=== PATIENT | female | born 1960 | race Caucasian/White ===

== ENCOUNTER 2019-12-11 19:04 | Emergency (ER) | payer OTHER, SELFPAY ==
[2019-12-11] VITALS (9 sets, daily range): BP systolic 147–190; BP diastolic 65–91; PULSE 55–155; RESP 16–30; TEMP 36.6; O2SAT 90–100; BMI 24.9
--- NOTE | 2019-12-11 19:22 | DI.RAD.S_ITS ---
PROCEDURE: XR FINGER RT MIN 2V INDICATIONS: crush injury TECHNIQUE: PA hand, 2 views of the index acquired. COMPARISON: None. FINDINGS: Bones: There is a small minimally displaced fracture in the tuft of the 2nd distal phalanx. The remaining osseous structures are intact. Soft tissues: Soft tissue irregularity/laceration is seen in the distal portion of the 2nd finger. IMPRESSION: Small minimally displaced fracture at the tuft of the 2nd distal phalanx. There is overlying soft tissue edema and skin irregularity/laceration. Dictated by: Antoine Patel M.D. on 12/11/2019 at 19:50 Approved by: Antoine Patel M.D. on 12/11/2019 at 19:51
--- NOTE | 2019-12-11 20:18 | PC.NURSE ---
Pt appears very anxious and is concerned that her anxiety is causing heart palpitations. Pt has a known heart defect which she has been treated for. Pt and VS reevaluated. HR ranging from 40-63, BP 147/65. No SOB or change in mentation with her palpitations. Pt returned to the waiting room lobby. tire recapper informed.
[2019-12-11 22:01] LABS: Add Manual Diff / Slide Review NO; Basophils Absolute Auto 0 /uL (0-100); Basophils Percent Auto 0.3 % (0-2); Eosinophils Absolute Auto 0 /uL (0-450); Eosinophils Percent Auto 0.4 % (2-4); Hematocrit 41.4 % (36-46); Hemoglobin 14.1 g/dL (12.0-16.0); Lymphocytes Absolute Auto 2200 /uL (1100-4500); Mean Corpuscular HGB Conc 34.1 % (30-36); Mean Corpuscular Hemoglobin 32.3 PG (26-34); Mean Corpuscular Volume 94.8 fL (80-100); Monocytes Absolute Auto 300 /uL (0-900); Monocytes Percent Auto 4.4 % (3-14); Neutrophils Absolute Auto 4300 /uL (1500-7000); Neutrophils Percent Auto 62.9 % (50-75); Platelet Count 256 X10^3/uL (150-400); Prothrombin Time 11.3 SECONDS (10.1-12.7); Red Blood Cell Count 4.37 X10^6/uL (4.0-5.2); Red Cell Distribution Width 13.1 % (11.6-14.8); White Blood Cell Count 6.8 X10^3/uL (4.5-11.0)
[2019-12-11 22:04] LABS: PTT Partial Thromboplastin Tim 31 SECONDS (26.4-36.2)
[2019-12-11 22:05] LABS: Alanine Aminotransferase 21 IU/L (<35); Albumin 4.7 g/dL (3.5-5.0); Albumin Globulin Ratio 1.1 (1.0-2.8); Alkaline Phosphatase 82 U/L (38-126); Aspartate Aminotransferase 30 IU/L (14-36); Bilirubin Total 0.6 mg/dL (0.2-1.3); Blood Urea Nitrogen 16 mg/dL (7-17); Calcium 9.9 mg/dL (8.4-10.2); Carbon Dioxide 31 mmol/L (22-32); Chloride 104 mmol/L (98-107); Creatine Kinase 109 U/L (30-135); Estimated Glomerular Filt Rate > 60.0 mL/min (>60); Globulin 4.2 g/dL (1.7-4.1); Glucose 104 mg/dL (70-100); HEMOLYSIS < 15 (0-50); Potassium 3.8 mmol/L (3.4-5.1); Sodium 141 mmol/L (137-145); Total Protein 8.9 g/dL (6.3-8.2)
--- NOTE | 2019-12-11 22:11 | PC.NURSE ---
patient states that she was hooking up a trailer and it fell on her finger distal right index
[2019-12-11 22:17] LABS: NT-proBNP (BNP-Adult 18+) 362 pg/mL (<125); Troponin I < 0.012 ng/mL (0.01-0.034)
[2019-12-11 22:20] LABS: Creatine Kinase MB 1.06 ng/mL (<2.37)
--- NOTE | 2019-12-11 22:20 | ED_ITS ---
HPI - Extremity Injury (Upper) General Chief Complaint: Extremity Injury, Upper Stated Complaint: RIGHT HAND INDEX FINGER INJURY Time Seen by Provider: 12/11/19 21:50 Source: patient Mode of arrival: Ambulatory History of Present Illness HPI narrative: Patient complains of injury to the right index finger. Crushed by a wood splitter when it dropped. Not up-to-date with tetanus. Not allergic to antibiotics. History of atrial septal defect with surgical repair in 2003 as an adult. No prior history of atrial fibrillation. Patient states she did feel palpitations today with the injury. Is not on any blood thinners. Patient denies any dyspnea. During conversation during history taken patient states she felt much better after my examination or finger and states that she was relieved that finger can be sutured. Immediately her heart rate and rhythm resolved to sinus rhythm with a rate of 67. EKG reordered. Related Data Previous Rx's Medication Instructions Recorded cephalexin 500 mg PO TID #21 cap 12/11/19 hydrocodone-acetaminophen 1 tab PO TID PRN #10 tab 12/11/19 ondansetron 4 mg PO Q8H PRN #10 tab 12/11/19 Allergies Allergy/AdvReac Type Severity Reaction Status Date / Time codeine AdvReac Mild Vomiting Verified 12/11/19 19:11 Review of Systems Review of Systems Narrative: GENERAL: Denies chills, fatigue, malaise, fever, sweats. HEENT: Denies sinus pain, ear pain, sore throat, difficulty swallowing, dizziness. RESPIRATORY: Denies dyspnea, cough, wheezing, hemoptysis, sputum. CARDIOVASCULAR: Denies chest pain, complains of palpitations, denies orthopnea, edema, GASTROINTESTINAL: Denies nausea, vomiting, abdominal pain, diarrhea, constipation, melena. : Denies dysuria, frequency, incontinence, hematuria, urinary retention. MUSCULOSKELETAL: denies weakness, complains of joint pain, or bony pain SKIN: Denies rash, skin lesions NEUROLOGIC: Denies weakness, headache, numbness, change in speech, confusion, seizures, incoordination. PSYCHIATRIC: No concerning psychosocial issues. ROS Unobtainable: All systems reviewed & are unremarkable except as noted in HPI and below Patient History Social History Smoking Status: Never smoker Smoking Status: Never smoker alcohol intake frequency: a few times a month Substance Use Type: does not use Exam Narrative Exam Narrative: GENERAL: patient appears stated age. Well-nourished, well- developed patient, in no distress, not toxic HEAD: Atraumatic. Normocephalic. EYES: Pupils equal round and reactive. Extraocular motions intact. No scleral icterus. No injection or drainage. ENT: Nose without bleeding, purulent drainage. Throat without erythema, tonsillar hypertrophy or exudate. Airway patent. NECK: Trachea midline. Non tender CARDIOVASCULAR: Regular rate and rhythm without murmurs, gallops, or rubs. Atrial fibrillation resolved prior to exam. RESPIRATORY: Clear to auscultation. Breath sounds equal bilaterally. No wheezes, rales, or rhonchi. GASTROINTESTINAL: Abdomen soft, non-tender, nondistended. EXTREMITIES: Examination of right index finger. There is a semicircular superficial laceration distal/tip of the finger. No bone or tendon injury visible. Based visualized. Bloodless field. Limited flexion extension at the PIP joint due to pain. Finger warm and soft BACK: Nontender without deformity or crepitance. No flank tenderness. NEURO: AOx4. SKIN: No rash or erythema of visible areas PSYCH: Not anxious, is cooperative Initial Vital Signs Initial Vital Signs: Vital Signs Temperature 97.9 F 12/11/19 19:11 Pulse Rate 55 L 12/11/19 19:11 Respiratory Rate 16 12/11/19 19:11 Blood Pressure 154/67 H 12/11/19 19:11 Pulse Oximetry 99 12/11/19 19:11 Procedures Laceration Repair Right index finger: Side (If applicable): right Size (cm): 2 Description: linear Depth: simple, single layer Local Anesthetic: lidocaine 1% Amount of anesthesia used (mL): 1 Pre-repair: wound explored and irrigated extensively Skin layer closed with: nylon Size (cm): 5-0 Number of sutures: 5 Technique: simple, interrupted Course Orders Ordered: ED Orders 12/11/19 21:10 EKG-12 Lead Stat 12/11/19 21:20 Complete Blood Count AUTO DIFF Stat Comprehensive Metabolic Panel Stat NT-proBNP (BNP-Adult 18+) Stat Partial Thromboplastin Time Stat Prothrombin Time INR Stat Troponin & CK Cardiac Panel Stat 12/11/19 22:19 EKG-12 Lead Stat Discontinued Medications Hydrocodone Bitart/Acetaminophen ([place] 5/325) 1 tab PO NOW ONE Stop: 12/11/19 23:12 Last Admin: 12/11/19 23:52 Dose: 1 tab Documented by: KATHERINE Bacitracin (Bacitracin) 1 applic TOP NOW ONE Stop: 12/11/19 23:43 Last Admin: 12/11/19 23:52 Dose: 1 applic Documented by: KATHERINE Cephalexin HCl (Keflex) 500 mg PO NOW ONE Stop: 12/11/19 22:20 Last Admin: 12/11/19 22:33 Dose: 500 mg Documented by: RADHA Diphtheria/Tetanus/Acell Pertussis (Adacel) 0.5 ml IM .ONCE ONE Stop: 12/11/19 22:26 Last Admin: 12/11/19 22:33 Dose: 0.5 ml Documented by: RADHA Lidocaine/Sodium Bicarbonate (Buffered Lidocaine 10 Ml Syr) 10 ml INJ NOW ONE Stop: 12/11/19 22:45 Last Admin: 12/11/19 22:46 Dose: 10 ml Documented by: RADHA Ondansetron HCl (Zofran Odt) 4 mg SL NOW ONE Stop: 12/11/19 23:12 Last Admin: 12/11/19 23:52 Dose: 4 mg Documented by: KATHERINE Tetanus/Diphtheria Toxoids (Td) 0.5 ml IM .ONCE ONE Stop: 12/11/19 22:21 Last Admin: 12/11/19 22:24 Dose: Not Given Documented by: RADHA Reevaluation(s) Reevaluation #1: Remains in sinus rhythm. Rate 53. No complaints. No bleeding at the finger wound. Time: 23:38 Consultations Consultation #1: Spoke with Dr. Burch, orthopedics. Appropriate for follow-up in 10 days. Time: 23:39 Consultation #2: Spoke with chemist water purification dr maxwell, appropriate for discharge home. He will see patient in the office next week. No new medications or anticoagulation. Time: 23:48 Vital Signs Vital signs: Vital Signs - 8 hr 12/11/19 21:19 12/11/19 22:00 12/11/19 22:05 Pulse Rate 140 H 155 H 149 H Respiratory Rate 30 H 29 H 28 H Blood Pressure 190/77 H Pulse Oximetry 98 90 L 96 12/11/19 22:30 12/11/19 22:31 12/11/19 23:00 Pulse Rate 64 72 60 Respiratory Rate 27 H 23 19 Blood Pressure 147/91 H 148/67 H Pulse Oximetry 99 100 98 12/11/19 23:30 12/12/19 00:00 12/12/19 00:01 Pulse Rate 60 57 L 63 Respiratory Rate 23 20 22 Blood Pressure 152/72 H 146/72 H Pulse Oximetry 99 99 98 MDM - Extremity Injury (Upper) Differential Diagnosis Differential diagnosis: Likely other (Finger fracture/new onset atrial fibrillation) Lab Data Attestation: I reviewed the patient's lab results. Result diagrams: 12/11/19 21:12/11/19 21: Labs: Lab Results 12/11/19 12/11/19 12/11/19 Range/Units 21: 21: 21: WBC 6.8 (4.5-11.0) X10^3/uL RBC 4.37 (4.0-5.2) X10^6/uL Hgb 14.1 (12.0-16.0) g/dL Hct 41.4 (36-46) % MCV 94.8 (80-100) fL MCH 32.3 (26-34) PG MCHC 34.1 (30-36) % RDW 13.1 (11.6-14.8) % Plt Count 256 (150-400) X10^3/uL Neut % (Auto) 62.9 (50-75) % Lymph % (Auto) 32.0 (25-40) % [place] % (Auto) 4.4 (3-14) % Eos % (Auto) 0.4 L (2-4) % Baso % (Auto) 0.3 (0-2) % Neut # (Auto) 4300 (6260-1083) /uL Lymph # (Auto) 2200 (6658-6745) /uL [place] # (Auto) 300 (0-900) /uL Eos # (Auto) 0 (0-450) /uL Baso # (Auto) 0 (0-100) /uL PT 11.3 (10.1-12.7) SECONDS INR 1.0 (0.9-1.3) APTT 31 (26.4-36.2) SECONDS Sodium 141 (137-145) mmol/L Potassium 3.8 (3.4-5.1) mmol/L Chloride 104 (98-107) mmol/L Carbon Dioxide 31 (22-32) mmol/L BUN 16 (7-17) mg/dL Creatinine 0.80 (0.52-1.04) mg/dL Estimated GFR > 60.0 (>60) mL/min BUN/Creatinine Ratio 20.0 (6-22) Glucose 104 H (70-100) mg/dL Calcium 9.9 (8.4-10.2) mg/dL Total Bilirubin 0.6 (0.2-1.3) mg/dL AST 30 (14-36) IU/L ALT 21 (<35) IU/L Alkaline Phosphatase 82 (38-126) U/L Total Creatine Kinase 109 (30-135) U/L CK-MB (CK-2) 1.06 (<2.37) ng/mL CK-MB (CK-2) Rel Index 1.0 L (1.5-5.0) % Troponin I < 0.012 (0.01-0.034) ng/mL NT-Pro-B Natriuret Pep 362 H (<125) pg/mL Total Protein 8.9 H (6.3-8.2) g/dL Albumin 4.7 (3.5-5.0) g/dL Globulin 4.2 H (1.7-4.1) g/dL Albumin/Globulin Ratio 1.1 (1.0-2.8) Imaging Data Extremity x-ray #1: Radiologist's Impression: [address] [address] XRay Report Signed Patient: Adriana Fowler RMR#: [id number] : 1Acct:[id number] Age/Sex: 59 / FDate of Service: 12/11/19 Loc: ED Accession Number: [id number] Procedure: XR finger RT min 2V Ordering Provider: Joy Bazzi D.O. PROCEDURE: XR FINGER RT MIN 2V INDICATIONS: crush injury TECHNIQUE: PA hand, 2 views of the index acquired. COMPARISON: None. FINDINGS: Bones: There is a small minimally displaced fracture in the tuft of the 2nd distal phalanx. The remaining osseous structures are intact. Soft tissues: Soft tissue irregularity/laceration is seen in the distal portion of the 2nd finger. IMPRESSION: Small minimally displaced fracture at the tuft of the 2nd distal phalanx. There is overlying soft tissue edema and skin irregularity/laceration. Dictated by: Antoine Patel M.D. on 12/11/2019 at 19:50 Approved by: Antoine Patel M.D. on 12/11/2019 at 19:51 ECG Data Attestation: I personally reviewed and interpreted this ECG as follows: Interpretation: Atrial fibrillation with RVR. Rate 120. Repeat EKG at 10:24 p.m.. Normal sinus rhythm. No ST elevation. Rate 63 MDM Narrative Medical decision making narrative: Appropriate for discharge home. Patient states she has conversation with chemist water purification in the past. Patient is on metoprolol as well as flecainide, known history of arrhythmias including PACs PVCs. Conversation about aspirin with her chemist water purification in the past and as needed because she bruises easily. I did review patient risk of atrial fibrillation stroke included. She does not not want any admission tonight or any anticoagulation. She prefers follow-up with cardiology. Discharge Plan Departure Patient Disposition: Home Clinical Impression: Laceration of finger Qualifiers: Encounter type: initial encounter Finger: index finger Damage to nail status: with damage Foreign body presence: without foreign body Laterality: right Qualified Code(s): S61.310A - Laceration without foreign body of right index finger with damage to nail, initial encounter Fracture of finger of right hand Qualifiers: Encounter type: initial encounter Finger: index finger Fracture type: open Phalanx: distal Fracture alignment: displaced Qualified Code(s): S62.630B - Displaced fracture of distal phalanx of right index finger, initial encounter for open fracture Atrial fibrillation Qualifiers: Atrial fibrillation type: unspecified Qualified Code(s): I48.91 - Unspecified atrial fibrillation Discharge Date/Time: 12/12/19 00:32 Instructions: DI for Laceration Repair, DI for Finger Fracture, DI for Atrial Fibrillation Activity Restrictions/Additional Instructions: Call Dr. Burch with Orthopedics on Saturday for office recheck next week. Five stitches to be removed in the office in [address] Maxwell cardiology office on Saturday for office recheck next week as well. Change dressing twice a day with warm soap and water and then apply nonocclusive dressing and topical antibiotic. Keep in bulky dressing to prevent further injury. Return if worse or if any palpitations chest pain dyspnea or any weakness. Return if any wound discharge or any fever or any concerns or discoloration of the finger. No driving tonight. measurement superintendent your prescriptions in the morning before returning home. No operating machinery or driving while on narcotic medication Prescriptions: New cephalexin 500 mg capsule 500 mg PO TID Qty: 21 RF: 0 ondansetron 4 mg tablet,disintegrating 4 mg PO Q8H PRN (Reason: nausea and vomiting) Qty: 10 RF: 0 hydrocodone-acetaminophen 5-325 mg tablet 1 tab PO TID PRN (Reason: pain) Qty: 10 RF: 0 Referrals: Marvel Maxwell MD [Physician] - Silvio Burch MD [Physician] -
[2019-12-11] MEDS: cephALEXin 250 MG CAPSULE 500 MG PO (22:33)
[2019-12-11] MEDS: TET,DIPH,PERTUSS(ACELL),VAC/PF 0.5 ML SYRINGE IM (22:33)
[2019-12-11] MEDS: LIDO 1%/SOD BICARB 8.4% (10ML) 10 ML SYRINGE INJ (22:46)
[2019-12-11] MEDS: HYDROCODONE/ACET 5/325 TABLET 1 TAB PO (23:52)
[2019-12-11] MEDS: BACITRACIN OINT 0.9 GM PCKT 1 APPLIC TOP (23:52)
[2019-12-11] MEDS: ONDANSETRON 4 MG ODT SL (23:52)
[2019-12-12] VITALS: PULSE 57; RESP 20; O2SAT 99
[2019-12-12 00:01] VITALS: BP 146/72; PULSE 63; RESP 22; O2SAT 98
--- NOTE | 2019-12-12 00:29 | PC.NURSE ---
Placed dressing on right second finger. started with bacitracin, followed with xeroform, non-stick gauze, and tube gauze.
== END 2019-12-12 00:32 | disposition home or self-care (01) ==
PROVIDERS: Emergency Provider Emergency Medicine
DX: S62.630B Displaced fracture of distal phalanx of right index finger, initial encounter for open fracture (principal); I48.91 Unspecified atrial fibrillation; R00.2 Palpitations; W23.0XXA Caught, crushed, jammed, or pinched between moving objects, initial encounter; Z23 Encounter for immunization
CPT/HCPCS: 12001; 73140; 80053; 82550; 82553; 83880; 84484; 85025; 85610; 85730; 90471; 93005; 93010; 99284; 90715

== ENCOUNTER → 2020-01-14 15:01 | Outpatient (CLI) | payer OTHER, SELFPAY ==
--- NOTE | 2020-01-14 | DI.ECHO.S_ITS ---
[facility] +---------+ : : [address] : : : : [id number] : : : : Phone: [phone] Echocardiogram Report + + :Name: JHOAN RIZO Study Date: 01/14/2020 Height: 65 in : :[facility] Weight: 146 lb : : Gender: Female BSA: 1.7 m2 : :: 1960 Age: 59 yrs BP: 127/77 mmHg: :Reason For Study: ATRIAL FIBRILLATION, INTERATRIAL CLOSURE : :DEVICE : :Ordering Physician: CARROLL, : :ANNETTE Performed By: Letitia Pimentel : :Referring: ANNETTE PADRON : + + Interpretation Summary 1) Normal left ventricular thickness, size, wall motion and systolic function (EF 55-60%). 2) Normal right ventricular size and function. 3) No significant valvular abnormalities. 4) There is an inter-atrial closure device present. No doppler evidence of shunt. 5) No prior Echo available for comparison. Procedure: A two-dimensional transthoracic echocardiogram with color flow and Doppler was performed. The study quality was technically adequate. There is no prior echocardiogram noted for this patient. The patient was in sinus rhythm with heart rates between 52-62 bpm during the exam. Left Ventricle: The left ventricle is normal in size and wall thickness. The ejection fraction is estimated to be 55-60%. Diastolic parameters suggest probable normal left ventricular diastolic function and normal filling pressures. Right Ventricle: The right ventricle is normal size. Atria: The left atrium is mildly dilated. The right atrium is normal in size. There is an inter-atrial closure device present. There is no Doppler evidence for an interatrial shunt. Mitral Valve: The mitral valve is normal in structure and function. There is a flat closure plane of the the mitral valve leaflets. There is mild mitral regurgitation. Aortic Valve: The aortic valve is trileaflet. The aortic valve opens well. There is no aortic valve stenosis. No aortic regurgitation is present. Tricuspid Valve: The tricuspid valve is normal in structure and function. There is mild tricuspid regurgitation. The right ventricular systolic pressure is estimated to be at least 27 mmHg based on an estimated right atrial pressure of 3 mm Hg. Pulmonic Valve: The pulmonic valve leaflets are thin and pliable; valve motion is normal. There is trace pulmonic regurgitation. Great Vessels: The aortic root is normal size. The dimensions of the ascending aorta are normal. The IVC is of normal diameter and collapses greater than 50% with a sniff. This suggests a low right atrial pressure of 3 mm Hg. Pericardium/ Pleura There is no pericardial effusion. There is no pleural effusion. MMode/2D Measurements & Calculations LVIDd: 4.8 cm LVOT diam: 1.9 cm LVIDs: 3.4 cm Ao root diam: 2.9 cm FS: 30.5 % asc Aorta Diam: 3.2 cm EPSS: 0.66 cm Ao Arch Diam (Prox Trans): 2.3 cm IVSd: 0.56 cm LVPWd: 0.77 cm LV cabello. diameter/BSA (cm/m^2): 2.8 LV sys. diameter/BSA (cm/m^2): 1.9 LA A2 area: 21.7 cm2 RA long axis: 5.1 cm LA A4 area: 17.5 cm2 RA area: 17.7 cm2 LA length (vol): 5.5 cm RA vol: 52.5 ml LA vol: 58.5 ml RA : 30.3 ml/m2 LA vol index: 33.8 ml/m2 IVC diam: 0.94 cm RVD1 (basal): 4.0 cm TAPSE: 2.2 cm Doppler Measurements & Calculations Ao V2 max: 180.8 cm/sec LVOT Max Souleymane: 122.8 cm/sec Ao V2 mean: 112.8 cm/sec LV V1 max P.0 mmHg Ao max P.1 mmHg LV V1 VTI: 27.0 cm Ao mean P.0 mmHg HELIO(I,D): 2.0 cm2 Ao V2 VTI: 39.1 cm HELIO(V,D): 2.0 cm2 sev ratio: 0.69 HELIO indexed to BSA (cm^2/m^2): 1.2 MV E max souleymane: 75.8 cm/sec TR max souleymane: 247.0 cm/sec MV A max souleymane: 70.4 cm/sec TR max P.4 mmHg MV E/A: 1.1 PA V2 max: 74.7 cm/sec Med Peak E' Souleymane: 10.2 cm/sec PA V2 mean: 50.1 cm/sec E/E' med: 7.5 PA mean P.2 mmHg Lat Peak E' Souleymane: 10.6 cm/sec PA pr(Accel): 22.5 mmHg E/E' lat: 7.2 E/e' average: 7.3 MV dec time: 0.23 sec SV(LVOT): 79.8 ml Reading Physician:04:48 PM
== END ==
PROVIDERS: PCP Nurse Practitioner; Referring Provider Internal Medicine Cardiovascular Disease; Visit Provider Internal Medicine Cardiovascular Disease
DX: I08.1 Rheumatic disorders of both mitral and tricuspid valves (principal); I48.0 Paroxysmal atrial fibrillation; Z87.74 Personal history of (corrected) congenital malformations of heart and circulatory system
CPT/HCPCS: 93306

== ENCOUNTER → 2020-06-09 11:56 | Outpatient (CLI) | payer OTHER, SELFPAY ==
[2020-06-09] MEDS: COVID-19 VACC #1, MRNA(MOD) 100 MCG/0.5 ML VIAL IM (12:13)
== END ==
PROVIDERS: PCP Nurse Practitioner; Visit Provider Internal Medicine
DX: Z23 Encounter for immunization (principal)
CPT/HCPCS: 0011A; 91301

== ENCOUNTER → 2020-07-07 12:03 | Outpatient (CLI) | payer OTHER, SELFPAY ==
[2020-07-07] MEDS: COVID-19 VACC #2, MRNA(MOD) 100 MCG/0.5 ML VIAL IM (12:08)
== END ==
PROVIDERS: PCP Nurse Practitioner; Visit Provider Internal Medicine
DX: Z23 Encounter for immunization (principal)
CPT/HCPCS: 0012A; 91301

== ENCOUNTER → 2023-06-20 11:36 | Outpatient (CLI) | payer OTHER, SELFPAY ==
--- NOTE | 2023-06-20 11:38 | DI.RAD.S_ITS ---
PROCEDURE: XR CHEST 2V INDICATIONS: hypoxia TECHNIQUE: 2 views of the chest were acquired. COMPARISON: [facility], CR, XR CHEST 1 VIEW, 05/10/2020, 17:54. [facility], CR, XR CHEST 2 VIEWS, 05/11/2020, 5:41. FINDINGS: Surgical changes and devices: There is a cardiac pacemaker in expected position. Lungs and pleura: Lungs are clear. No pleural effusions or pneumothorax. Mediastinum: Mediastinal contours are normal. Heart size is normal. Bones and chest wall: No suspicious bony abnormalities. Soft tissues appear unremarkable. IMPRESSION: No acute cardiopulmonary abnormality is seen. Dictated by: Mike Nix M.D. on 06/20/2023 at 14:39 Approved by: Mike Nix M.D. on 06/20/2023 at 14:39
== END ==
PROVIDERS: PCP Nurse Practitioner; Referring Provider Internal Medicine Critical Care Medicine; Visit Provider Internal Medicine Critical Care Medicine
DX: G47.34 Idiopathic sleep related nonobstructive alveolar hypoventilation (principal); G47.33 Obstructive sleep apnea (adult) (pediatric); Z86.16 Personal history of COVID-19
CPT/HCPCS: 71046; 99214

== ENCOUNTER → 2023-09-10 07:53 | Outpatient (CLI) | payer OTHER, SELFPAY ==
[2023-09-10 09:06] LABS: Add Manual Diff / Slide Review NO; Basophils Absolute Auto 0 /uL (0-100); Basophils Percent Auto 0.6 % (0-2); Eosinophils Absolute Auto 100 /uL (0-450); Eosinophils Percent Auto 2.8 % (2-4); Hematocrit 35.1 % (36-46); Hemoglobin 12.2 g/dL (12.0-16.0); Lymphocytes Absolute Auto 1700 /uL (1100-4500); Lymphocytes Percent Auto 45.1 % (25-40); Mean Corpuscular HGB Conc 34.9 % (30-36); Mean Corpuscular Hemoglobin 33.9 PG (26-34); Mean Corpuscular Volume 97.2 fL (80-100); Monocytes Absolute Auto 300 /uL (0-900); Monocytes Percent Auto 7.6 % (3-14); Neutrophils Absolute Auto 1700 /uL (1500-7000); Neutrophils Percent Auto 43.9 % (50-75); Platelet Count 231 X10^3/uL (150-400); Red Blood Cell Count 3.61 X10^6/uL (4.0-5.2); Red Cell Distribution Width 12.6 % (11.6-14.8); White Blood Cell Count 3.8 X10^3/uL (4.5-11.0)
[2023-09-10 09:18] LABS: HEMOLYSIS < 15 (0-50); Iron 148 ug/dL (37-170)
[2023-09-10 09:27] LABS: Alanine Aminotransferase 18 IU/L (<35); Albumin 4.2 g/dL (3.5-5.0); Albumin Globulin Ratio 1.1 (1.0-2.8); Alkaline Phosphatase 77 U/L (38-126); Aspartate Aminotransferase 24 IU/L (14-36); BUN Creatinine Ratio 23.3 (6-22); Bilirubin Total 0.6 mg/dL (0.2-1.3); Blood Urea Nitrogen 17 mg/dL (7-17); Calcium 9.4 mg/dL (8.4-10.2); Carbon Dioxide 28 mmol/L (22-32); Chloride 108 mmol/L (98-107); Cholesterol 243 mg/dL (140-199); Estimated Glomerular Filt Rate > 60 mL/min (>60); Globulin 3.7 g/dL (1.7-4.1); Glucose 91 mg/dL (80-110); HDL Cholesterol 82 mg/dL (40-60); HEMOLYSIS < 15 (0-50); LDL Cholesterol Calculated 135 mg/dL (<100); Sodium 139 mmol/L (137-145); Total Protein 7.9 g/dL (6.3-8.2); Triglycerides 131 mg/dL (35-150)
[2023-09-10 09:31] LABS: Percent Iron Saturation 55 % (15-50); Total Iron Binding Capacity 270 ug/dL (265-497); Transferrin 220 mg/dL (206-381)
[2023-09-10 09:35] LABS: Vitamin D 25 Hydroxy (D3) 23.7 ng/mL (30.0-100.0)
[2023-09-10 09:36] LABS: Potassium 4.1 mmol/L (3.4-5.1)
[2023-09-10 09:54] LABS: Ferritin 22 ng/mL (11-264); TSH w/ Reflex to FT4 0.18 uIU/mL (0.47-4.68)
[2023-09-10 10:23] LABS: Free T4, Direct Thyroxine 0.85 ng/dL (0.78-2.19)
== END ==
PROVIDERS: PCP Family Medicine; Referring Provider Family Medicine; Visit Provider Family Medicine
DX: E78.5 Hyperlipidemia, unspecified (principal); R25.2 Cramp and spasm; E03.9 Hypothyroidism, unspecified; Z87.74 Personal history of (corrected) congenital malformations of heart and circulatory system; Z86.39 Personal history of other endocrine, nutritional and metabolic disease
CPT/HCPCS: 36415; 80053; 80061; 82306; 82728; 83540; 83550; 83735; 84439; 84443; 85025

== ENCOUNTER → 2023-11-04 07:11 | Outpatient (CLI) | payer OTHER, SELFPAY ==
[2023-11-04 08:08] LABS: Add Manual Diff / Slide Review NO; Basophils Absolute Auto 0 /uL (0-100); Basophils Percent Auto 0.6 % (0-2); Eosinophils Absolute Auto 100 /uL (0-450); Eosinophils Percent Auto 2.6 % (2-4); Hematocrit 35.6 % (36-46); Hemoglobin 12.1 g/dL (12.0-16.0); Lymphocytes Absolute Auto 2100 /uL (1100-4500); Lymphocytes Percent Auto 49.1 % (25-40); Mean Corpuscular Hemoglobin 33.4 PG (26-34); Mean Corpuscular Volume 98.2 fL (80-100); Monocytes Absolute Auto 400 /uL (0-900); Monocytes Percent Auto 9.2 % (3-14); Neutrophils Absolute Auto 1600 /uL (1500-7000); Neutrophils Percent Auto 38.5 % (50-75); Platelet Count 233 X10^3/uL (150-400); Red Blood Cell Count 3.63 X10^6/uL (4.0-5.2); Red Cell Distribution Width 12.9 % (11.6-14.8); White Blood Cell Count 4.2 X10^3/uL (4.5-11.0)
[2023-11-04 08:59] LABS: Thyroid Stimulating Hormone 1.62 uIU/mL (0.47-4.68)
== END ==
PROVIDERS: PCP Family Medicine; Referring Provider Family Medicine; Visit Provider Family Medicine
DX: E03.9 Hypothyroidism, unspecified (principal); Z86.39 Personal history of other endocrine, nutritional and metabolic disease; E78.5 Hyperlipidemia, unspecified
CPT/HCPCS: 36415; 84443; 85025

== ENCOUNTER → 2023-11-07 11:50 | Outpatient (CLI) | payer OTHER, SELFPAY ==
[2023-11-07 13:08] LABS: INR 0.9 (0.9-1.3); Prothrombin Time 10.5 SECONDS (9.4-12.5)
== END ==
LOC: LAB 11:50
PROVIDERS: PCP Family Medicine; Referring Provider Family Medicine; Visit Provider Family Medicine
DX: R23.3 Spontaneous ecchymoses (principal)
CPT/HCPCS: 36415; 85610

== ENCOUNTER → 2023-12-31 12:33 | Outpatient (CLI) | payer OTHER, SELFPAY ==
--- NOTE | 2023-12-31 12:34 | DI.MG.S_ITS ---
BILATERAL DIGITAL SCREENING MAMMOGRAM 3D/2D WITH CAD: 12/31/2023 CLINICAL: Routine screening. Comparison is made to exams dated: 09/06/2021 mammogram and 02/15/2020 mammogram - [facility]. There are scattered areas of fibroglandular density (category b / 25%-50% glandular tissue). Current study was also evaluated with a Computer Aided Detection (CAD) system. There are benign calcifications in the right breast. No significant masses, calcifications, or other findings are seen in either breast. There has been no significant interval change. IMPRESSION: BENIGN There is no mammographic evidence of malignancy. A 1 year screening mammogram is recommended. Based on the Tyrer Cuzick model (a risk assessment model) the patient's lifetime risk is 7.1% and her 10 year risk is 3.2%. According to the ACR, ACS, and NCCN guidelines, an annual breast MRI exam along with mammogram is recommended if the patient's lifetime risk is 20% or greater. This exam was interpreted at Station ID: [id number]. NOTE: For mammograms, a report in lay terms will be sent to the patient. Approximately 15% of breast malignancies will not be visualized mammographically. In the management of a palpable breast mass, a negative mammogram must not discourage biopsy of a clinically suspicious lesion. Electronically Signed By: Kelsey núñez/jeyson:12/31/2023 18:12:17 letter sent: Normal Exam ACR BI-RADS Category 2: Benign
== END ==
PROVIDERS: PCP Family Medicine; Referring Provider Family Medicine; Visit Provider Family Medicine
DX: Z12.31 Encounter for screening mammogram for malignant neoplasm of breast (principal)
CPT/HCPCS: 77063; 77067

== ENCOUNTER 2024-01-07 09:31 | Day surgery (SDC) | payer OTHER, SELFPAY ==
[2024-01-07 10:00] VITALS: BP 137/75; PULSE 62; RESP 20; TEMP 36.4; O2SAT 97
--- NOTE | 2024-01-07 10:41 | PM.HP.1 ---
History of Present Illness History of Present Illness Date Patient Seen: 01/07/24 Time Patient Seen: 10:47 Chief complaint: Colonoscopy Narrative: Colon cancer screening. Last scope 10 yrs ago. [facility] Social History Smoking Status: Never smoker Meds Home Medications and Allergies Home Medications Medication Instructions Recorded Confirmed Type aspirin 81 mg tablet,delayed 81 mg PO DAILY 06/20/23 01/07/24 History release diltiazem HCl 180 mg 180 mg PO DAILY 06/20/23 01/07/24 History capsule,extended release 24 hr (Cartia XT) levothyroxine 125 mcg tablet 125 mcg PO DAILY 06/20/23 01/07/24 History (Synthroid) atorvastatin 10 mg tablet 10 mg PO DAILY 09/06/23 01/07/24 History Allergies Allergy/AdvReac Type Severity Reaction Status Date / Time codeine AdvReac Mild Vomiting Verified 01/07/24 09:59 Review of Systems Review of Systems ROS: Yes All systems reviewed with the patient and are negative except as otherwise documented Exam Vital Signs (past 8 hours): - 01/07/24 10:00 Temperature 97.6 F Pulse Rate 62 Respiratory Rate 20 Blood Pressure 137/75 Pulse Oximetry 97 Oxygen Delivery Method Room Air Oxygen Delivery Method Room Air Const General: cooperative and healthy appearing Nutritional Appearance: average body habitus HENMT Head: normocephalic and atraumatic Ears: hearing grossly normal bilaterally Eyes Sclera: sclerae normal Neck Neck: trachea midline Resp Effort & Inspection: normal respiratory effort and able to speak in complete sentences Cardio Rate: regular rate Rhythm: regular rhythm GI Palpation: soft and No tender Skin General: turgor normal and No atrophy Neuro General: patient alert, patient awake and patient oriented x3 Cognition: normal cognition Psych Mental Status: mental status grossly normal Speech and Movement: speech and movement normal Judgment: judgment good Assessment & Plan Assessment & Plan narrative: Colon cancer screening with colonoscopy using anesthesia Time-Based Coding :: [TOTAL MINUTES] spent with patient and on the chart (including review of chart, obtaining history, exam, reviewing outside data, placing orders, documenting exam and treatment plan, and counseling patient) on [DATE].
--- NOTE | 2024-01-07 11:04 | PM.OP.COLON ---
Operative Date/Time/Diagnoses Date of procedure: 01/07/24 Time of procedure: 11:04 Pre-op diagnosis: Colon cancer screening Post-op diagnosis: same Procedure & Clinicians Study performed: Colonoscopy with anesthesia Same procedure as scheduled: Yes Indications: Colon cancer screening Surgeon: Jenny Smith Procedure Notes Procedure in detail: Preop diagnosis: Colon cancer screening Postop diagnosis: Same Operative procedure: Colonoscopy with anesthesia Surgeon: Emmy Smith MD Findings: Normal colonoscopy. No diverticulosis, no polyps Procedure: Patient placed in a lateral position. Rectal exam performed showing normal tone no masses. Colonoscope inserted into the rectum and advanced to ileocecal valve with minimal difficulty. Insufflation extraction of the scope and the above findings. Unable to do rectal retroflex. Second examination digitally shows no masses. Internal hemorrhoids. Impression: Normal colonoscopy no polyps. Plan: Recommend repeat in 10 years. Specimen(s): none sent Complications: none Post-procedure Recommendations: Colonoscopy in 10 years Follow up: as needed Disposition: PACU
[2024-01-07 11:06] VITALS: BP 106/59; PULSE 60; RESP 18; TEMP 36.3; O2SAT 100
[2024-01-07 11:12] VITALS: BP 111/72; PULSE 60; RESP 16; O2SAT 100
[2024-01-07 11:13] VITALS: BP 106/70; PULSE 60; RESP 14; TEMP 36.8; O2SAT 100
== END 2024-01-07 11:31 | disposition home or self-care (01) ==
PROVIDERS: PCP Family Medicine; Referring Provider Surgery; Visit Provider Surgery
PROC: 0DJD8ZZ Inspection of Lower Intestinal Tract, Via Natural or Artificial Opening Endoscopic (ICD-10-PCS; CPT 45378; principal; 2024-01-07 10:45)
DX: Z12.11 Encounter for screening for malignant neoplasm of colon (principal)
CPT/HCPCS: 45378; J2704

== ENCOUNTER → 2024-03-10 10:55 | Outpatient (CLI) | payer OTHER, SELFPAY ==
--- NOTE | 2024-03-10 10:57 | DI.RAD.S_ITS ---
PROCEDURE: XR HAND RT MIN 3V INDICATIONS: Injury of right hand TECHNIQUE: 3 views of the hand(s) acquired. COMPARISON: None. FINDINGS: Bones: Small bone fragment seen adjacent to the 2nd distal phalangeal tip. No other acute displaced fracture or dislocation. Mild degenerative changes especially at the base of the thumb. Soft tissues: No suspicious calcifications. IMPRESSION: Small fragment adjacent to the 2nd distal phalangeal tip, correlate with location of injury. Dictated by: Richard Jorgensen M.D. on 03/10/2024 at 14:43 Approved by: Richard Jorgensen M.D. on 03/10/2024 at 14:45
[2024-03-10 12:04] LABS: Add Manual Diff / Slide Review NO; Basophils Absolute Auto 0 /uL (0-100); Basophils Percent Auto 0.6 % (0-2); Eosinophils Absolute Auto 0 /uL (0-450); Eosinophils Percent Auto 1.4 % (2-4); Hematocrit 36.2 % (36-46); Hemoglobin 12.4 g/dL (12.0-16.0); Lymphocytes Absolute Auto 1500 /uL (1100-4500); Lymphocytes Percent Auto 45.9 % (25-40); Mean Corpuscular HGB Conc 34.4 % (30-36); Mean Corpuscular Hemoglobin 33.8 PG (26-34); Mean Corpuscular Volume 98.1 fL (80-100); Monocytes Absolute Auto 200 /uL (0-900); Monocytes Percent Auto 6.8 % (3-14); Neutrophils Absolute Auto 1500 /uL (1500-7000); Neutrophils Percent Auto 45.3 % (50-75); Platelet Count 242 X10^3/uL (150-400); Red Blood Cell Count 3.69 X10^6/uL (4.0-5.2); Red Cell Distribution Width 12.6 % (11.6-14.8); White Blood Cell Count 3.4 X10^3/uL (4.5-11.0)
[2024-03-10 12:50] LABS: HEMOLYSIS < 15 (0-50); Iron 134 ug/dL (37-170)
[2024-03-10 13:02] LABS: Percent Iron Saturation 57 % (15-50); Total Iron Binding Capacity 237 ug/dL (265-497); Transferrin 219 mg/dL (206-381)
[2024-03-10 13:26] LABS: Ferritin 39 ng/mL (11-264)
[2024-03-10 14:29] LABS: Vitamin D 25 Hydroxy (D3) > 126 ng/mL (30.0-100.0)
== END ==
PROVIDERS: PCP Family Medicine; Referring Provider Family Medicine; Visit Provider Family Medicine
DX: S69.91XA Unspecified injury of right wrist, hand and finger(s), initial encounter (principal); M79.10 Myalgia, unspecified site; E61.1 Iron deficiency; E78.5 Hyperlipidemia, unspecified; E03.9 Hypothyroidism, unspecified; X58.XXXA Exposure to other specified factors, initial encounter; Z86.39 Personal history of other endocrine, nutritional and metabolic disease
CPT/HCPCS: 36415; 73130; 82306; 82728; 83540; 83550; 83735; 85025

== ENCOUNTER → 2024-05-01 11:35 | Outpatient (CLI) | payer OTHER, SELFPAY ==
--- NOTE | 2024-05-01 11:37 | DI.RAD.S_ITS ---
PROCEDURE: XR DEXA AXIAL SKELETON INDICATIONS: eval bone density COMPARISON: None. FINDINGS: Lumbar Spine: Bone mineral density 0.84 g/cm2, T score -1.8,. Left Femoral Neck: Bone mineral density 0.67 g/cm2, T score -1.6. Left Hip: Bone mineral density 0.84 g/cm2, T score -0.8. Fracture Risk Calculation (when applicable): 10-year fracture risk of a major osteoporotic fracture 18 percent and of a hip fracture 1 percent. (T score greater or equal to -1.0 to: NORMAL) (T score from -1.1 to -2.4: OSTEOPENIA) (T score less than or equal to -2.5: OSTEOPOROSIS) IMPRESSION: Osteopenia with fracture risk calculation as above. Follow-up guidelines as follows: Osteoporosis: Consider a repeat DEXA and Vertebral Fracture Assessment (VFA) exam in 2 years or sooner if medically necessary, to reassess this patient's status. Osteopenia: Consider a repeat DEXA in 2-3 years to reassess this patient's status, or if there is a new clinical indication. Normal: Consider a repeat DEXA in 5 years or sooner, or if there is a new clinical indication. All treatment decisions require clinical judgment and consideration of individual patient factors, including patient preferences, comorbidities, previous drug use, risk factors not captured in the FRAX model (e.g., frailty, falls, vitamin D deficiency, increased bone turnover, interval significant decline in bone density ) and possible under- or over-estimation of fracture risk by FRAX. In addition, the NOF Guide recommends that FDA-approved medical therapies be considered in postmenopausal women and men age >= 50 years with a: * Hip or vertebral (clinical or morphometric) fracture * T-score of <=-2.5 at the spine or hip * Ten-year fracture probability by FRAX of >= 3% for hip fracture or >=20% for major osteoporotic fracture. Dictated by: Richard Jorgensen M.D. on 05/01/2024 at 14:37 Approved by: Richard Jorgensen M.D. on 05/01/2024 at 14:38
== END ==
PROVIDERS: PCP Family Medicine; Referring Provider Family Medicine; Visit Provider Family Medicine
DX: M85.89 Other specified disorders of bone density and structure, multiple sites (principal); Z86.39 Personal history of other endocrine, nutritional and metabolic disease
CPT/HCPCS: 77080

== ENCOUNTER → 2024-05-13 09:46 | Outpatient (CLI) | payer OTHER, SELFPAY ==
[2024-05-13 10:44] LABS: Cholesterol 267 mg/dL (140-199); HDL Cholesterol 80 mg/dL (40-60); LDL Cholesterol Calculated 170 mg/dL (<100); Triglycerides 84 mg/dL (35-150)
== END ==
PROVIDERS: PCP Family Medicine; Referring Provider Family Medicine; Visit Provider Family Medicine
DX: M79.10 Myalgia, unspecified site (principal); E61.1 Iron deficiency; Z86.39 Personal history of other endocrine, nutritional and metabolic disease; E78.5 Hyperlipidemia, unspecified; E03.9 Hypothyroidism, unspecified
CPT/HCPCS: 36415; 80061

== ENCOUNTER 2024-09-02 11:30 | Outpatient (RCR) | payer OTHER, SELFPAY ==
--- NOTE | 2024-07-27 18:48 | PT.OIE ---
Current Diagnoses Pain in right leg (07/27/24) Pain in left leg (07/27/24) Cramp and spasm (07/27/24) Other symptoms and signs involving the musculoskeletal system (07/27/24) Visit Care Team Role Provider Type Leila Stewart MD Attending Provider Physician Family Provider Primary Care Provider Referring Provider Specialty: Family Practice RESOURCE AGENT Address: [address] [place] [address], [facility] Email: [email or web address] Physical Therapy Initial Evaluation PT-OP-A Visit Information Start: 07/23/24 17:26 Freq: Status: Active Protocol: Document 07/27/24 13:51 [facility] (Rec: 07/27/24 14:37 [facility] [id number]) Out-Patient Physical Therapy Visit Information Visit Information Visit Type Initial Evaluation Visit Start Time 13:51 Visit Stop Time 14:37 Visit Number 1 Number of LEATHER GOODS I ASSEMBLER Visits 0 PT-OP-B Current Condition Start: 07/23/24 17:26 Freq: Status: Active Protocol: Document 07/27/24 13:51 [facility] (Rec: 07/27/24 14:37 [facility] [id number]) Current Condition History of Current Condition Onset Date 1-1.5 years ago Current Complaints BLE pain History of Current Condition for about a year to year and a half has been having pain in legs and cramping. She was taking statins and stopped taking one then went on another and it got worse and stopped but not better. Pain ranges from 2-8/10. A day that it was bad, she got into a hot tub and that helped. Her entire life had ramona horses . She did become iron deficit and anemic. It is worse at night and wakes with it. Can't stand for long periods of time anymore. Can walk and feels like her LEs and strong. Bought a cane for a big day seeing cardio in [place] because it was a 7 mile day and having 3 points of contact can help. Does have varicose veins. Pain L>R ant thigh and wallace. She was just diagnosis w /MGUS. She is worried she has bone lesions. Awaiting bone marrow biopsy and CT body scan at [facility] for myeloma specialist. 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 Tried to ski and was too exhausted and couldn't do it. Worried about complications from MGUS causing these symptoms including a neuropathy from this. Was walking 4.3 miles a day last year and this year down to 4 per her apple watch. Prior to that was walking a little more . Denies back or neck pain. Does have some L glute pain and L lat knee/wallace. Sleeps w/ CPAP on side and on back some. Treatment Goals Patient/Caregiver Goals Get pain gone, figure out what is wrong, be able to ski next winter PT-OP-D Balance Start: 07/23/24 17:26 Freq: Status: Active Protocol: Document 07/27/24 13:51 [facility] (Rec: 07/27/24 14:37 [id number]) Balance Tests Single Limb Standing Single Limb- Right >30 sec Single Limb- Left >30 sec w/some deviation PT-OP-L Special Tests Start: 07/23/24 17:26 Freq: Status: Active Protocol: Document 07/27/24 13:51 [facility] (Rec: 07/27/24 14:37 [id number]) Special Tests Other Special Tests Special Tests SLR: WNL ROM Slump and ext sit neg -mild more tightness L Azael: mild quad tightness quad reflex: 2+ B achilles reflex:1+ B PT-OP-M Strength Start: 07/23/24 17:26 Freq: Status: Active Protocol: Document 07/27/24 13:51 [facility] (Rec: 07/27/24 14:37 [facility] [id number]) Hip Strength Hip Manual Muscle Testing Right Flexion (L2) 3+ Fair+ Extension (S1) 4 Good Abduction 4 Good Adduction 5 Normal External Rotation 5 Normal Internal Rotation 5 Normal Left Flexion (L2) 3+ Fair+ Extension (S1) 4 Good Abduction 4 Good Adduction 5 Normal External Rotation 5 Normal Internal Rotation 4+ Good+ Knee Strength Knee Manual Muscle Testing Right Flexion (S2) 4 Good Extension (L3) 5 Normal Left Flexion (S2) 4 Good Extension (L3) 5 Normal Ankle/Foot Strength Ankle and Foot Manual Muscle Testing Right Dorsiflexion (L4) 5 Normal Plantarflexion (S1) 5 Normal Inversion 5 Normal Eversion (S1) 5 Normal Left Dorsiflexion (L4) 5 Normal Plantarflexion (S1) 5 Normal Inversion 5 Normal Eversion (S1) 5 Normal Comments 20 heel raises B PT-OP-Q Treatments Start: 07/23/24 17:26 Freq: Status: Active Protocol: Document 07/27/24 13:51 [facility] (Rec: 07/27/24 14:37 [facility] [id number]) Therapeutic Activity Therapeutic Activity Sleep Reps/Minutes 10 min Comments s/l and supine sleep positioning w/ use of pillows and towels to support UEs, LEs and spine PT-OP-T Assessment and Plan Start: 07/23/24 17:26 Freq: Status: Active Protocol: Document 07/27/24 13:51 [facility] (Rec: 07/27/24 14:37 [facility] [id number]) Physical Therapy Assessment Rehab Potential Rehabilitation Potential Good Evaluation Complexity Number of Personal Factors/Comorbidities 3 or More Number of Body Systems Impaired 4 or More Clinical Presentation at Evaluation Evolving Impairments Impairments Activity Tolerance,Balance, Functional Activities, Functional Mobility,Gait,Pain, Posture,ROM,Soft Tissue Mobility,Strength,Transfers Goals strength Short Term Goal (STG) Pt will be indep w/HEP STG Duration 09/06 Assisted Goal (LTG) Pt will score at least 4+/5 on all BLE MMT and at least 3/5 LPM to show improved stability to allow pt to be strong enough to do rec activities like skiing along w/dec pain LTG Duration 7 pain Short Term Goal (STG) pt will report highest pain level at 6/10 in last week. STG Duration 09/06 Field Map Editor Goal (LTG) pt will rate pain as no greater than 3/10 for at least 2 weeks LTG Duration 10/06 Assessment Summary Assessment Pt presents w/BLE ant thigh and wallace pain w/o specific reason of onset. She has recent dx of MGUS which could be related to the pain, has history of taking statins, has varicose veins, overall weakness and dec stability to LEs, all which could be contributing to her pain. She denies back pain so that is less likely the cause with that and all neural tension testing was negative. She is weaker which is making it harder for her to enjoy her typical active lifestyle activities like skiing and does note her balance does feel dec. Pt would benefit from skilled PT for high level balance, gait mechanics, dec pain, improved ROM and strength. Physical Therapy Plan Frequency and Duration Frequency of Treatment 1-2x/wk Duration of treatment (weeks) 10 Plan of Care Start Date 07/27/24 Plan of Care End Date 10/07/24 Therapeutic Interventions Therapeutic Interventions Balance Training,Gait Training ,Home Exercise Program,Joint Mobilizations,Manual Therapy, Neuromuscular Re-education, Patient/Caregiver Education, Self-Care/Home Management,Soft Tissue Mobilization,Taping, Therapeutic Activities, Therapeutic Exercises Modalities Cold Pack/Ice Massage,Hot Packs Next Visit Focus/Plan Next Note Type Treatment Note Next Visit Plan Gentle manual to LEs, strength exercises: squats, lunges, sidesteps, bridges; stretches to LEs
--- NOTE | 2024-07-29 11:41 | PT.OTN ---
Current Diagnoses Pain in right leg (07/29/24) Pain in left leg (07/29/24) Cramp and spasm (07/29/24) Other symptoms and signs involving the musculoskeletal system (07/29/24) Physical Therapy Treatment Note PT-OP-A Visit Information Start: 07/23/24 17:26 Freq: Status: Active Protocol: Document 07/29/24 10:46 [facility] (Rec: 07/29/24 11:40 [facility] [id number]) Out-Patient Physical Therapy Visit Information Visit Information Visit Type Treatment Note Visit Start Time 10:48 Visit Stop Time 11:30 Visit Number 2 Number of BOBBIN HANDLER Visits 0 PT-OP-B Current Condition Start: 07/23/24 17:26 Freq: Status: Active Protocol: Document 07/27/24 13:51 [facility] (Rec: 07/27/24 14:37 [facility] [id number]) Current Condition History of Current Condition Onset Date 1-1.5 years ago Current Complaints BLE pain History of Current Condition for about a year to year and a half has been having pain in legs and cramping. She was taking statins and stopped taking one then went on another and it got worse and stopped but not better. Pain ranges from 2-8/10. A day that it was bad, she got into a hot tub and that helped. Her entire life had ramona horses . She did become iron deficit and anemic. It is worse at night and wakes with it. Can't stand for long periods of time anymore. Can walk and feels like her LEs and strong. Bought a cane for a big day seeing cardio in [place] because it was a 7 mile day and having 3 points of contact can help. Does have varicose veins. Pain L>R ant thigh and wallace. She was just diagnosis w /MGUS. She is worried she has bone lesions. Awaiting bone marrow biopsy and CT body scan at [facility] for myeloma specialist. 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 Tried to ski and was too exhausted and couldn't do it. Worried about complications from MGUS causing these symptoms including a neuropathy from this. Was walking 4.3 miles a day last year and this year down to 4 per her apple watch. Prior to that was walking a little more . Denies back or neck pain. Does have some L glute pain and L lat knee/wallace. Sleeps w/ CPAP on side and on back some. Treatment Goals Patient/Caregiver Goals Get pain gone, figure out what is wrong, be able to ski next winter PT-OP-C Subjective Start: 07/23/24 17:26 Freq: Status: Active Protocol: Document 07/29/24 10:46 [facility] (Rec: 07/29/24 11:40 [id number] OP-PT Subjective Patient Comments Patient Comments Pt reports pain is about 2/10- more at the quads than shins. Did notice a little sciatica in L leg with use of pillows so gave up. PT-OP-D Balance Start: 07/23/24 17:26 Freq: Status: Active Protocol: Document 07/27/24 13:51 [facility] (Rec: 07/27/24 14:37 [id number] Balance Tests Single Limb Standing Single Limb- Right >30 sec Single Limb- Left >30 sec w/some deviation PT-OP-L Special Tests Start: 07/23/24 17:26 Freq: Status: Active Protocol: Document 07/27/24 13:51 [facility] (Rec: 07/27/24 14:37 [id number] Special Tests Other Special Tests Special Tests SLR: WNL ROM Slump and ext sit neg -mild more tightness L Azael: mild quad tightness quad reflex: 2+ B achilles reflex:1+ B PT-OP-M Strength Start: 07/23/24 17:26 Freq: Status: Active Protocol: Document 07/27/24 13:51 [facility] (Rec: 07/27/24 14:37 [id number] Hip Strength Hip Manual Muscle Testing Right Flexion (L2) 3+ Fair+ Extension (S1) 4 Good Abduction 4 Good Adduction 5 Normal External Rotation 5 Normal Internal Rotation 5 Normal Left Flexion (L2) 3+ Fair+ Extension (S1) 4 Good Abduction 4 Good Adduction 5 Normal External Rotation 5 Normal Internal Rotation 4+ Good+ Knee Strength Knee Manual Muscle Testing Right Flexion (S2) 4 Good Extension (L3) 5 Normal Left Flexion (S2) 4 Good Extension (L3) 5 Normal Ankle/Foot Strength Ankle and Foot Manual Muscle Testing Right Dorsiflexion (L4) 5 Normal Plantarflexion (S1) 5 Normal Inversion 5 Normal Eversion (S1) 5 Normal Left Dorsiflexion (L4) 5 Normal Plantarflexion (S1) 5 Normal Inversion 5 Normal Eversion (S1) 5 Normal Comments 20 heel raises B PT-OP-Q Treatments Start: 07/23/24 17:26 Freq: Status: Active Protocol: Document 07/29/24 10:46 [facility] (Rec: 07/29/24 11:40 [facility] [id number]) Therapeutic Exercises Supine Exercises stretches Supine Exercise Name 1. piriformis 2. figure 4 Side bilateral Reps/Minutes 60 sec ea HS curl Supine Exercise Name bridge w/curl Side bilateral Equipment Used 55cm Reps/Minutes 20 Standing Exercises sidestep Side bilateral Equipment Used L2 at ankles Reps/Minutes 20ft stretch Standing Exercise Name quad Side bilateral Reps/Minutes 60 sec ea lunges Side bilateral Reps/Minutes 10 Comments cues alignment squat Standing Exercise Name tap to chair Side bilateral Reps/Minutes 5 w/o band, 15 w/band Other Exercises self release Other Exercise Name foam roll out calves, HS, quads Side bilateral Reps/Minutes 4 min Comments demo use of rolling pin also Manual Therapy Treatment Consent Patient gave verbal consent for manual Yes treatment Soft Tissue Mobilization quads Body Location B Mobilization Type Rolling,Strumming Intensity/Depth Moderate Body Position Supine PT-OP-T Assessment and Plan Start: 07/23/24 17:26 Freq: Status: Active Protocol: Document 07/29/24 10:46 [facility] (Rec: 07/29/24 11:40 [facility] [id number]) Physical Therapy Assessment Goals strength Short Term Goal (STG) Pt will be indep w/HEP STG Duration 09/06 Hand Crown Pouncer Goal (LTG) Pt will score at least 4+/5 on all BLE MMT and at least 3/5 LPM to show improved stability to allow pt to be strong enough to do rec activities like skiing along w/dec pain LTG Duration 7 pain Short Term Goal (STG) pt will report highest pain level at 6/10 in last week. STG Duration 6 Hand Crown Pouncer Goal (LTG) pt will rate pain as no greater than 3/10 for at least 2 weeks LTG Duration 10/06 Assessment Summary Assessment Pt reports STM felt good and helped. No inc in pain w/ session except occ c/o R knee pain and pt needed cues for position slightly. With squats , improved w/band Physical Therapy Plan Frequency and Duration Frequency of Treatment 1-2x/wk Duration of treatment (weeks) 10 Plan of Care Start Date 07/27/24 Plan of Care End Date 10/07/24 Next Visit Focus/Plan Next Note Type Treatment Note Next Visit Plan Gentle manual to LEs, review strength exercises: squats, lunges, sidesteps, bridges; stretches to LEs
--- NOTE | 2024-08-03 12:31 | PT.OTN ---
Current Diagnoses Pain in right leg (08/03/24) Pain in left leg (08/03/24) Cramp and spasm (08/03/24) Other symptoms and signs involving the musculoskeletal system (08/03/24) Physical Therapy Treatment Note PT-OP-A Visit Information Start: 07/23/24 17:26 Freq: Status: Active Protocol: Document 08/03/24 10:47 [facility] (Rec: 08/03/24 12:31 [facility] [id number]) Out-Patient Physical Therapy Visit Information Visit Information Visit Type Treatment Note Visit Start Time 10:49 Visit Stop Time 11:30 Visit Number 3 Number of SERVICE CAPTAIN Visits 0 PT-OP-B Current Condition Start: 07/23/24 17:26 Freq: Status: Active Protocol: Document 07/27/24 13:51 [facility] (Rec: 07/27/24 14:37 [facility] [id number]) Current Condition History of Current Condition Onset Date 1-1.5 years ago Current Complaints BLE pain History of Current Condition for about a year to year and a half has been having pain in legs and cramping. She was taking statins and stopped taking one then went on another and it got worse and stopped but not better. Pain ranges from 2-8/10. A day that it was bad, she got into a hot tub and that helped. Her entire life had ramona horses . She did become iron deficit and anemic. It is worse at night and wakes with it. Can't stand for long periods of time anymore. Can walk and feels like her LEs and strong. Bought a cane for a big day seeing cardio in [place] because it was a 7 mile day and having 3 points of contact can help. Does have varicose veins. Pain L>R ant thigh and wallace. She was just diagnosis w /MGUS. She is worried she has bone lesions. Awaiting bone marrow biopsy and CT body scan at [facility] for myeloma specialist. 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 Tried to ski and was too exhausted and couldn't do it. Worried about complications from MGUS causing these symptoms including a neuropathy from this. Was walking 4.3 miles a day last year and this year down to 4 per her apple watch. Prior to that was walking a little more . Denies back or neck pain. Does have some L glute pain and L lat knee/wallace. Sleeps w/ CPAP on side and on back some. Treatment Goals Patient/Caregiver Goals Get pain gone, figure out what is wrong, be able to ski next winter PT-OP-C Subjective Start: 07/23/24 17:26 Freq: Status: Active Protocol: Document 08/03/24 10:47 [facility] (Rec: 08/03/24 12:31 [facility] [id number]) OP-PT Subjective Patient Comments Patient Comments For 24 hours after last session had very little pain. PT-OP-D Balance Start: 07/23/24 17:26 Freq: Status: Active Protocol: Document 07/27/24 13:51 [facility] (Rec: 07/27/24 14:37 [facility] [id number]) Balance Tests Single Limb Standing Single Limb- Right >30 sec Single Limb- Left >30 sec w/some deviation PT-OP-L Special Tests Start: 07/23/24 17:26 Freq: Status: Active Protocol: Document 07/27/24 13:51 [facility] (Rec: 07/27/24 14:37 [facility] [id number]) Special Tests Other Special Tests Special Tests SLR: WNL ROM Slump and ext sit neg -mild more tightness L Azael: mild quad tightness quad reflex: 2+ B achilles reflex:1+ B PT-OP-M Strength Start: 07/23/24 17:26 Freq: Status: Active Protocol: Document 07/27/24 13:51 [facility] (Rec: 07/27/24 14:37 [facility] [id number]) Hip Strength Hip Manual Muscle Testing Right Flexion (L2) 3+ Fair+ Extension (S1) 4 Good Abduction 4 Good Adduction 5 Normal External Rotation 5 Normal Internal Rotation 5 Normal Left Flexion (L2) 3+ Fair+ Extension (S1) 4 Good Abduction 4 Good Adduction 5 Normal External Rotation 5 Normal Internal Rotation 4+ Good+ Knee Strength Knee Manual Muscle Testing Right Flexion (S2) 4 Good Extension (L3) 5 Normal Left Flexion (S2) 4 Good Extension (L3) 5 Normal Ankle/Foot Strength Ankle and Foot Manual Muscle Testing Right Dorsiflexion (L4) 5 Normal Plantarflexion (S1) 5 Normal Inversion 5 Normal Eversion (S1) 5 Normal Left Dorsiflexion (L4) 5 Normal Plantarflexion (S1) 5 Normal Inversion 5 Normal Eversion (S1) 5 Normal Comments 20 heel raises B PT-OP-Q Treatments Start: 07/23/24 17:26 Freq: Status: Active Protocol: Document 08/03/24 10:47 [facility] (Rec: 08/03/24 12:31 [facility] [id number]) Gym Equipment Shuttle Balance red clips Comments fwd & side: WBOS and NBOS fwd: staggered stance b Therapeutic Exercises Supine Exercises stretches Supine Exercise Name 1. piriformis 2. figure 4 Side bilateral Reps/Minutes 30 sec ea HS curl Supine Exercise Name bridge w/curl Side bilateral Equipment Used 55cm Reps/Minutes 8 Comments edu can do w/SL if too easy Standing Exercises DF Standing Exercise Name back at wall Side bilateral Reps/Minutes 20 sidestep Side bilateral Equipment Used L3 at ankles Reps/Minutes 20ft stretch Standing Exercise Name 1.quad 2. calf on stairs Side bilateral Reps/Minutes 60 sec ea lunges Side bilateral Reps/Minutes 2x10 Comments cues alignment w/ R>L squat Standing Exercise Name tap to chair Side bilateral Equipment Used L3 at knees Reps/Minutes 2x10 Other Exercises self release Other Exercise Name foam roll out calves, HS, quads Side bilateral Reps/Minutes 3 min Manual Therapy Treatment Consent Patient gave verbal consent for manual Yes treatment Soft Tissue Mobilization quads Body Location B Mobilization Type Rolling,Strumming Intensity/Depth Moderate Body Position Supine Comments PT student on R and PT L Taping quads Comments I strip from inf quad to sup quad B-edu to take off if irritates skin and otherwise can leave on up to 5 days PT-OP-T Assessment and Plan Start: 07/23/24 17:26 Freq: Status: Active Protocol: Document 08/03/24 10:47 [facility] (Rec: 08/03/24 12:31 [facility] [id number]) Physical Therapy Assessment Goals strength Short Term Goal (STG) Pt will be indep w/HEP STG Duration 6/15 Power Machine Operator Goal (LTG) Pt will score at least 4+/5 on all BLE MMT and at least 3/5 LPM to show improved stability to allow pt to be strong enough to do rec activities like skiing along w/dec pain LTG Duration 7/15 pain Short Term Goal (STG) pt will report highest pain level at 6/10 in last week. STG Duration 6/15 Longterm Goal (LTG) pt will rate pain as no greater than 3/10 for at least 2 weeks LTG Duration 10/06 Assessment Summary Assessment Pt required very minimal cues with exercises, lunges and sidesteps most notable for needing cues. cont to have quad tightness B but does feel improved compared to last session. Physical Therapy Plan Frequency and Duration Frequency of Treatment 1-2x/wk Duration of treatment (weeks) 10 Plan of Care Start Date 07/27/24 Plan of Care End Date 10/07/24 Next Visit Focus/Plan Next Note Type Treatment Note Next Visit Plan Gentle manual to LEs, review strength exercises
--- NOTE | 2024-08-05 12:31 | PT.OTN ---
Current Diagnoses Pain in right leg (08/05/24) Pain in left leg (08/05/24) Cramp and spasm (08/05/24) Other symptoms and signs involving the musculoskeletal system (08/05/24) Physical Therapy Treatment Note PT-OP-A Visit Information Start: 07/23/24 17:26 Freq: Status: Active Protocol: Document 08/05/24 10:47 AB (Rec: 08/05/24 12:31 AB Laptop) Out-Patient Physical Therapy Visit Information Visit Information Visit Type Treatment Note Visit Note Access Code: [email or web address] Visit Start Time 10:48 Visit Stop Time 11:30 Visit Number 4 Number of V BLOCK SAW OPERATOR Visits 1 PT-OP-B Current Condition Start: 07/23/24 17:26 Freq: Status: Active Protocol: Document 07/27/24 13:51 [facility] (Rec: 07/27/24 14:37 [facility] [id number]) Current Condition History of Current Condition Onset Date 1-1.5 years ago Current Complaints BLE pain History of Current Condition for about a year to year and a half has been having pain in legs and cramping. She was taking statins and stopped taking one then went on another and it got worse and stopped but not better. Pain ranges from 2-8/10. A day that it was bad, she got into a hot tub and that helped. Her entire life had ramnoa horses . She did become iron deficit and anemic. It is worse at night and wakes with it. Can't stand for long periods of time anymore. Can walk and feels like her LEs and strong. Bought a cane for a big day seeing cardio in [place] because it was a 7 mile day and having 3 points of contact can help. Does have varicose veins. Pain L>R ant thigh and wallace. She was just diagnosis w /MGUS. She is worried she has bone lesions. Awaiting bone marrow biopsy and CT body scan at [facility] for myeloma specialist. 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 Tried to ski and was too exhausted and couldn't do it. Worried about complications from MGUS causing these symptoms including a neuropathy from this. Was walking 4.3 miles a day last year and this year down to 4 per her apple watch. Prior to that was walking a little more . Denies back or neck pain. Does have some L glute pain and L lat knee/wallace. Sleeps w/ CPAP on side and on back some. Treatment Goals Patient/Caregiver Goals Get pain gone, figure out what is wrong, be able to ski next winter PT-OP-C Subjective Start: 07/23/24 17:26 Freq: Status: Active Protocol: Document 08/05/24 10:47 AB (Rec: 08/05/24 12:31 AB Laptop) OP-PT Subjective Patient Comments Patient Comments Patient reports she is about the same. Adriana rates pain 4/ 10 bilateral quads. Patient reports the tape didn't make any difference. PT-OP-D Balance Start: 07/23/24 17:26 Freq: Status: Active Protocol: Document 07/27/24 13:51 [facility] (Rec: 07/27/24 14:37 [id number] Balance Tests Single Limb Standing Single Limb- Right >30 sec Single Limb- Left >30 sec w/some deviation PT-OP-L Special Tests Start: 07/23/24 17:26 Freq: Status: Active Protocol: Document 07/27/24 13:51 [facility] (Rec: 07/27/24 14:37 [facility] [id number]) Special Tests Other Special Tests Special Tests SLR: WNL ROM Slump and ext sit neg -mild more tightness L Azael: mild quad tightness quad reflex: 2+ B achilles reflex:1+ B PT-OP-M Strength Start: 07/23/24 17:26 Freq: Status: Active Protocol: Document 07/27/24 13:51 [facility] (Rec: 07/27/24 14:37 [id number] Hip Strength Hip Manual Muscle Testing Right Flexion (L2) 3+ Fair+ Extension (S1) 4 Good Abduction 4 Good Adduction 5 Normal External Rotation 5 Normal Internal Rotation 5 Normal Left Flexion (L2) 3+ Fair+ Extension (S1) 4 Good Abduction 4 Good Adduction 5 Normal External Rotation 5 Normal Internal Rotation 4+ Good+ Knee Strength Knee Manual Muscle Testing Right Flexion (S2) 4 Good Extension (L3) 5 Normal Left Flexion (S2) 4 Good Extension (L3) 5 Normal Ankle/Foot Strength Ankle and Foot Manual Muscle Testing Right Dorsiflexion (L4) 5 Normal Plantarflexion (S1) 5 Normal Inversion 5 Normal Eversion (S1) 5 Normal Left Dorsiflexion (L4) 5 Normal Plantarflexion (S1) 5 Normal Inversion 5 Normal Eversion (S1) 5 Normal Comments 20 heel raises B PT-OP-Q Treatments Start: 07/23/24 17:26 Freq: Status: Active Protocol: Document 08/05/24 10:47 AB (Rec: 08/05/24 12:31 AB Laptop) Therapeutic Exercises Supine Exercises breathing from diaphragm Supine Exercise Name HEP Reps/Minutes 2min Comments self tactile cues for breathing from diaphgram stretches Supine Exercise Name 1. piriformis 2. figure 4 Side bilateral Reps/Minutes 60 sec ea HS curl Supine Exercise Name bridge w/curl Side bilateral Equipment Used 65cm Reps/Minutes X 10 Comments edu can do w/SL if too easy Standing Exercises DF Standing Exercise Name back at wall Side bilateral Reps/Minutes 20 sidestep Side bilateral Equipment Used L3 at ankles Reps/Minutes 20ft stretch Standing Exercise Name 1.quad 2. calf on stairs Side bilateral Reps/Minutes 60 sec ea lunges Side bilateral Reps/Minutes 4x10 Comments verbal cues for hip hinge, monitored for alignment squat Standing Exercise Name tap to chair Side bilateral Equipment Used L3 at knees Reps/Minutes 2x10 Manual Therapy Treatment Consent Patient gave verbal consent for manual Yes treatment Soft Tissue Mobilization quads Body Location B Mobilization Type Cross-Friction,Rolling, Strumming Intensity/Depth Moderate Body Position Supine Comments monitored for tolerance PT-OP-T Assessment and Plan Start: 07/23/24 17:26 Freq: Status: Active Protocol: Document 08/05/24 10:47 AB (Rec: 08/05/24 12:31 AB Laptop) Physical Therapy Assessment Goals strength Short Term Goal (STG) Pt will be indep w/HEP STG Duration 09/06 Home Assessment Nurse Goal (LTG) Pt will score at least 4+/5 on all BLE MMT and at least 3/5 LPM to show improved stability to allow pt to be strong enough to do rec activities like skiing along w/dec pain LTG Duration 10/06 pain Short Term Goal (STG) pt will report highest pain level at 6/10 in last week. STG Duration 09/06 Home Assessment Nurse Goal (LTG) pt will rate pain as no greater than 3/10 for at least 2 weeks LTG Duration 10/06 Assessment Summary Assessment Patient reports she did feel it in quads with side stepping with band, questioned regarding lunges, and patient repeated and demonstrated side stepping. Physical Therapy Plan Frequency and Duration Frequency of Treatment 1-2x/wk Duration of treatment (weeks) 10 Plan of Care Start Date 07/27/24 Plan of Care End Date 10/07/24 Next Visit Focus/Plan Next Note Type Treatment Note Next Visit Plan Gentle manual to LEs, review strength exercises/ possibly progress as marisela
--- NOTE | 2024-08-05 12:37 | PT.OTN ---
Current Diagnoses Pain in right leg (08/05/24) Pain in left leg (08/05/24) Cramp and spasm (08/05/24) Other symptoms and signs involving the musculoskeletal system (08/05/24) Physical Therapy Treatment Note PT-OP-A Visit Information Start: 07/23/24 17:26 Freq: Status: Active Protocol: Document 08/05/24 10:47 AB (Rec: 08/05/24 12:31 AB Laptop) Out-Patient Physical Therapy Visit Information Visit Information Visit Type Treatment Note Visit Note Access Code: [email or web address] Visit Start Time 10:48 Visit Stop Time 11:30 Visit Number 4 Number of MANAGER ORDER Visits 1 PT-OP-B Current Condition Start: 07/23/24 17:26 Freq: Status: Active Protocol: Document 07/27/24 13:51 [facility] (Rec: 07/27/24 14:37 [facility] [id number]) Current Condition History of Current Condition Onset Date 1-1.5 years ago Current Complaints BLE pain History of Current Condition for about a year to year and a half has been having pain in legs and cramping. She was taking statins and stopped taking one then went on another and it got worse and stopped but not better. Pain ranges from 2-8/10. A day that it was bad, she got into a hot tub and that helped. Her entire life had ramona horses . She did become iron deficit and anemic. It is worse at night and wakes with it. Can't stand for long periods of time anymore. Can walk and feels like her LEs and strong. Bought a cane for a big day seeing cardio in [place] because it was a 7 mile day and having 3 points of contact can help. Does have varicose veins. Pain L>R ant thigh and wallace. She was just diagnosis w /MGUS. She is worried she has bone lesions. Awaiting bone marrow biopsy and CT body scan at [facility] for myeloma specialist. 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 Tried to ski and was too exhausted and couldn't do it. Worried about complications from MGUS causing these symptoms including a neuropathy from this. Was walking 4.3 miles a day last year and this year down to 4 per her apple watch. Prior to that was walking a little more . Denies back or neck pain. Does have some L glute pain and L lat knee/wallace. Sleeps w/ CPAP on side and on back some. Treatment Goals Patient/Caregiver Goals Get pain gone, figure out what is wrong, be able to ski next winter PT-OP-C Subjective Start: 07/23/24 17:26 Freq: Status: Active Protocol: Document 08/05/24 10:47 AB (Rec: 08/05/24 12:31 AB Laptop) OP-PT Subjective Patient Comments Patient Comments Patient reports she is about the same. Adriana rates pain 4/ 10 bilateral quads. Patient reports the tape didn't make any difference. PT-OP-D Balance Start: 07/23/24 17:26 Freq: Status: Active Protocol: Document 07/27/24 13:51 [facility] (Rec: 07/27/24 14:37 [id number] Balance Tests Single Limb Standing Single Limb- Right >30 sec Single Limb- Left >30 sec w/some deviation PT-OP-L Special Tests Start: 07/23/24 17:26 Freq: Status: Active Protocol: Document 07/27/24 13:51 [facility] (Rec: 07/27/24 14:37 [facility] [id number]) Special Tests Other Special Tests Special Tests SLR: WNL ROM Slump and ext sit neg -mild more tightness L Azael: mild quad tightness quad reflex: 2+ B achilles reflex:1+ B PT-OP-M Strength Start: 07/23/24 17:26 Freq: Status: Active Protocol: Document 07/27/24 13:51 [facility] (Rec: 07/27/24 14:37 [id number]) Hip Strength Hip Manual Muscle Testing Right Flexion (L2) 3+ Fair+ Extension (S1) 4 Good Abduction 4 Good Adduction 5 Normal External Rotation 5 Normal Internal Rotation 5 Normal Left Flexion (L2) 3+ Fair+ Extension (S1) 4 Good Abduction 4 Good Adduction 5 Normal External Rotation 5 Normal Internal Rotation 4+ Good+ Knee Strength Knee Manual Muscle Testing Right Flexion (S2) 4 Good Extension (L3) 5 Normal Left Flexion (S2) 4 Good Extension (L3) 5 Normal Ankle/Foot Strength Ankle and Foot Manual Muscle Testing Right Dorsiflexion (L4) 5 Normal Plantarflexion (S1) 5 Normal Inversion 5 Normal Eversion (S1) 5 Normal Left Dorsiflexion (L4) 5 Normal Plantarflexion (S1) 5 Normal Inversion 5 Normal Eversion (S1) 5 Normal Comments 20 heel raises B PT-OP-Q Treatments Start: 07/23/24 17:26 Freq: Status: Active Protocol: Document 08/05/24 10:47 AB (Rec: 08/05/24 12:31 AB Laptop) Therapeutic Exercises Supine Exercises breathing from diaphragm Supine Exercise Name HEP Reps/Minutes 2min Comments self tactile cues for breathing from diaphgram stretches Supine Exercise Name 1. piriformis 2. figure 4 Side bilateral Reps/Minutes 60 sec ea HS curl Supine Exercise Name bridge w/curl Side bilateral Equipment Used 65cm Reps/Minutes X 10 Comments edu can do w/SL if too easy Standing Exercises DF Standing Exercise Name back at wall Side bilateral Reps/Minutes 20 sidestep Side bilateral Equipment Used L3 at ankles Reps/Minutes 20ft stretch Standing Exercise Name 1.quad 2. calf on stairs Side bilateral Reps/Minutes 60 sec ea lunges Side bilateral Reps/Minutes 4x10 Comments verbal cues for hip hinge, monitored for alignment squat Standing Exercise Name tap to chair Side bilateral Equipment Used L3 at knees Reps/Minutes 2x10 Manual Therapy Treatment Consent Patient gave verbal consent for manual Yes treatment Soft Tissue Mobilization quads Body Location B Mobilization Type Cross-Friction,Rolling, Strumming Intensity/Depth Moderate Body Position Supine Comments monitored for tolerance PT-OP-T Assessment and Plan Start: 07/23/24 17:26 Freq: Status: Active Protocol: Document 08/05/24 10:47 AB (Rec: 08/05/24 12:31 AB Laptop) Physical Therapy Assessment Goals strength Short Term Goal (STG) Pt will be indep w/HEP STG Duration 09/06 Franchise Consultant Goal (LTG) Pt will score at least 4+/5 on all BLE MMT and at least 3/5 LPM to show improved stability to allow pt to be strong enough to do rec activities like skiing along w/dec pain LTG Duration 10/06 pain Short Term Goal (STG) pt will report highest pain level at 6/10 in last week. STG Duration 09/06 Franchise Consultant Goal (LTG) pt will rate pain as no greater than 3/10 for at least 2 weeks LTG Duration 10/06 Assessment Summary Assessment Patient reports she did feel it in quads with side stepping with band, questioned regarding lunges, and patient repeated and demonstrated side stepping. Physical Therapy Plan Frequency and Duration Frequency of Treatment 1-2x/wk Duration of treatment (weeks) 10 Plan of Care Start Date 07/27/24 Plan of Care End Date 10/07/24 Next Visit Focus/Plan Next Note Type Progress Note Next Visit Plan Gentle manual to LEs, review strength exercises/ possibly progress as marisela
--- NOTE | 2024-08-20 18:27 | PT.OTN ---
Current Diagnoses Pain in right leg (08/20/24) Pain in left leg (08/20/24) Cramp and spasm (08/20/24) Other symptoms and signs involving the musculoskeletal system (08/20/24) Physical Therapy Treatment Note PT-OP-A Visit Information Start: 07/23/24 17:26 Freq: Status: Active Protocol: Document 08/20/24 13:20 [facility] (Rec: 08/20/24 18:27 [facility] [id number]) Out-Patient Physical Therapy Visit Information Visit Information Visit Type Progress Note Visit Note Access Code: [email or web address] Visit Start Time 13:50 Visit Stop Time 14:30 Visit Number 5 Number of RAISIN WASHER Visits 0 PT-OP-B Current Condition Start: 07/23/24 17:26 Freq: Status: Active Protocol: Document 07/27/24 13:51 [facility] (Rec: 07/27/24 14:37 [facility] [id number]) Current Condition History of Current Condition Onset Date 1-1.5 years ago Current Complaints BLE pain History of Current Condition for about a year to year and a half has been having pain in legs and cramping. She was taking statins and stopped taking one then went on another and it got worse and stopped but not better. Pain ranges from 2-8/10. A day that it was bad, she got into a hot tub and that helped. Her entire life had ramona horses . She did become iron deficit and anemic. It is worse at night and wakes with it. Can't stand for long periods of time anymore. Can walk and feels like her LEs and strong. Bought a cane for a big day seeing cardio in [place] because it was a 7 mile day and having 3 points of contact can help. Does have varicose veins. Pain L>R ant thigh and wallace. She was just diagnosis w /MGUS. She is worried she has bone lesions. Awaiting bone marrow biopsy and CT body scan at [facility] for myeloma specialist. 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 Tried to ski and was too exhausted and couldn't do it. Worried about complications from MGUS causing these symptoms including a neuropathy from this. Was walking 4.3 miles a day last year and this year down to 4 per her apple watch. Prior to that was walking a little more . Denies back or neck pain. Does have some L glute pain and L lat knee/wallace. Sleeps w/ CPAP on side and on back some. Treatment Goals Patient/Caregiver Goals Get pain gone, figure out what is wrong, be able to ski next winter PT-OP-C Subjective Start: 07/23/24 17:26 Freq: Status: Active Protocol: Document 08/20/24 13:20 [facility] (Rec: 08/20/24 18:27 [facility] [id number]) OP-PT Subjective Patient Comments Patient Comments pt reports she thinks her legs are better. unsure if it is d /t change in temp PT-OP-D Balance Start: 07/23/24 17:26 Freq: Status: Active Protocol: Document 07/27/24 13:51 [facility] (Rec: 07/27/24 14:37 [facility] [id number]) Balance Tests Single Limb Standing Single Limb- Right >30 sec Single Limb- Left >30 sec w/some deviation PT-OP-J Posture/Palpation/Skin Start: 07/23/24 17:26 Freq: Status: Active Protocol: Document 08/20/24 13:20 [facility] (Rec: 08/20/24 18:27 [facility] [id number]) Posture Evaluation [facility] Postural Classification System Lumbar Protective Mechanism Left AP 2 Lumbar Protective Mechanism Right AP 2 Lumbar Protective Mechanism Left PA 3 Lumbar Protective Mechanism Right PA 3 PT-OP-L Special Tests Start: 07/23/24 17:26 Freq: Status: Active Protocol: Document 07/27/24 13:51 [facility] (Rec: 07/27/24 14:37 [facility] [id number]) Special Tests Other Special Tests Special Tests SLR: WNL ROM Slump and ext sit neg -mild more tightness L Azael: mild quad tightness quad reflex: 2+ B achilles reflex:1+ B PT-OP-M Strength Start: 07/23/24 17:26 Freq: Status: Active Protocol: Document 08/20/24 13:20 [facility] (Rec: 08/20/24 18:27 [facility] [id number]) Hip Strength Hip Manual Muscle Testing Right Flexion (L2) 3+ Fair+ Extension (S1) 4+ Good+ Abduction 4+ Good+ Adduction 5 Normal External Rotation 5 Normal Internal Rotation 5 Normal Left Flexion (L2) 4- Good- Extension (S1) 4+ Good+ Abduction 4+ Good+ Adduction 5 Normal External Rotation 5 Normal Internal Rotation 5 Normal Knee Strength Knee Manual Muscle Testing Right Flexion (S2) 5 Normal Extension (L3) 5 Normal Left Flexion (S2) 5 Normal Extension (L3) 5 Normal Ankle/Foot Strength Ankle and Foot Manual Muscle Testing Right Dorsiflexion (L4) 5 Normal Plantarflexion (S1) 5 Normal Inversion 5 Normal Eversion (S1) 5 Normal Left Dorsiflexion (L4) 5 Normal Plantarflexion (S1) 5 Normal Inversion 5 Normal Eversion (S1) 5 Normal Comments 20 heel raises B PT-OP-Q Treatments Start: 07/23/24 17:26 Freq: Status: Active Protocol: Document 08/20/24 13:20 [facility] (Rec: 08/20/24 18:27 [facility] [id number]) Therapeutic Exercises Supine Exercises core Supine Exercise Name hip flex isometric Side bilateral Reps/Minutes 30 sec Standing Exercises DF Standing Exercise Name back at wall Side bilateral Reps/Minutes 12 sidestep Side bilateral Equipment Used L3 at ankles Reps/Minutes 20ft stretch Standing Exercise Name . calf on stairs Side bilateral Reps/Minutes 30 sec ea lunges Side bilateral Reps/Minutes 10ft Comments good form today squat Standing Exercise Name tap to chair Side bilateral Equipment Used L3 at knees Reps/Minutes x10 Comments cues L>R knee position Manual Therapy Treatment Consent Patient gave verbal consent for manual Yes treatment Soft Tissue Mobilization ant tib Body Location b Mobilization Type Rolling quads Body Location B Mobilization Type Rolling,Strumming Intensity/Depth Moderate Body Position Supine Comments monitored for tolerance PT-OP-T Assessment and Plan Start: 07/23/24 17:26 Freq: Status: Active Protocol: Document 08/20/24 13:20 [facility] (Rec: 08/20/24 18:27 [facility] [id number]) Physical Therapy Assessment Goals strength Short Term Goal (STG) Pt will be indep w/HEP 08/20-minor cues needed STG Duration 09/06 Softball Coach Goal (LTG) Pt will score at least 4+/5 on all BLE MMT and at least 3/5 LPM to show improved stability to allow pt to be strong enough to do rec activities like skiing along w/dec pain 08/20-improving LTG Duration 10/06 pain Short Term Goal (STG) pt will report highest pain level at 6/10 in last week. STG Duration 09/06 Retirement Goal (LTG) pt will rate pain as no greater than 3/10 for at least 2 weeks LTG Duration 10/06 Assessment Summary Assessment pt did well with review of exercises but did require some cues for appropriate form. She is making progress w/ strength and noting some dec in pain. Cont PT for strength, mobility and dec pain.
--- NOTE | 2024-08-25 17:54 | PT-OP ANOTE ---
Pt called and said imaging was completed and found nothing in CT scan (no lesions) but in imaging found lower lumbar facet arthropathy and wants to make sure she stabilizes her back next session
--- NOTE | 2024-09-02 17:56 | PT.OTN ---
Addendum entered and electronically signed by Pippa Velasquez, PT 09/02/24 18:13: PT direct supervision and direction to student PT Lucie Majano throughout session Original Note: Current Diagnoses Pain in right leg (09/02/24) Pain in left leg (09/02/24) Cramp and spasm (09/02/24) Other symptoms and signs involving the musculoskeletal system (09/02/24) Physical Therapy Treatment Note PT-OP-A Visit Information Start: 07/23/24 17:26 Freq: Status: Active Protocol: Document 09/02/24 12:20 GG (Rec: 09/02/24 12:32 GG [id number]) Out-Patient Physical Therapy Visit Information Visit Information Visit Type Treatment Note Visit Start Time 11:35 Visit Stop Time 11:20 Visit Number 6 Number of SALES AND SERVICE CONSULTANT Visits 0 PT-OP-B Current Condition Start: 07/23/24 17:26 Freq: Status: Active Protocol: Document 07/27/24 13:51 [facility] (Rec: 07/27/24 14:37 [facility] [id number]) Current Condition History of Current Condition Onset Date 1-1.5 years ago Current Complaints BLE pain History of Current for about a year to year and a half has been having Condition pain in legs and cramping. She was taking statins and stopped taking one then went on another and it got worse and stopped but not better. Pain ranges from 2-8/ 10. A day that it was bad, she got into a hot tub and that helped. Her entire life had ramona horses. She did become iron deficit and anemic. It is worse at night and wakes with it. Can't stand for long periods of time anymore. Can walk and feels like her LEs and strong. Bought a cane for a big day seeing cardio in [place] because it was a 7 mile day and having 3 points of contact can help. Does have varicose veins. Pain L> R ant thigh and wallace. She was just diagnosis w/MGUS. She is worried she has bone lesions. Awaiting bone marrow biopsy and CT body scan at [facility] for myeloma specialist. 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 Tried to ski and was too exhausted and couldn't do it. Worried about complications from MGUS causing these symptoms including a neuropathy from this. Was walking 4.3 miles a day last year and this year down to 4 per her apple watch. Prior to that was walking a little more. Denies back or neck pain. Does have some L glute pain and L lat knee/wallace. Sleeps w/CPAP on side and on back some. Treatment Goals Patient/Caregiver Get pain gone, figure out what is wrong, be able to ski Goals next winter PT-OP-C Subjective Start: 07/23/24 17:26 Freq: Status: Active Protocol: Document 09/02/24 12:20 GG (Rec: 09/02/24 12:32 GG [id number]) OP-PT Subjective Patient Comments Patient Comments Pt reports that her legs are feeling better. Got imaging report for her back and would to work on core more because she thinks that will help. PT-OP-D Balance Start: 07/23/24 17:26 Freq: Status: Active Protocol: Document 07/27/24 13:51 [facility] (Rec: 07/27/24 14:37 [facility] [id number]) Balance Tests Single Limb Standing Single Limb- Right >30 sec Single Limb- Left >30 sec w/some deviation PT-OP-J Posture/Palpation/Skin Start: 07/23/24 17:26 Freq: Status: Active Protocol: Document 08/20/24 13:20 [facility] (Rec: 08/20/24 18:27 [facility] [id number]) Posture Evaluation [facility] Postural Classification System Lumbar Protective 2 Mechanism Left AP Lumbar Protective 2 Mechanism Right AP Lumbar Protective 3 Mechanism Left PA Lumbar Protective 3 Mechanism Right PA PT-OP-L Special Tests Start: 07/23/24 17:26 Freq: Status: Active Protocol: Document 07/27/24 13:51 [facility] (Rec: 07/27/24 14:37 [facility] [id number]) Special Tests Other Special Tests Special Tests SLR: WNL ROM Slump and ext sit neg -mild more tightness L Azael: mild quad tightness quad reflex: 2+ B achilles reflex:1+ B PT-OP-M Strength Start: 07/23/24 17:26 Freq: Status: Active Protocol: Document 08/20/24 13:20 [facility] (Rec: 08/20/24 18:27 [facility] [id number]) Hip Strength Hip Manual Muscle Testing Right Flexion (L2) 3+ Fair+ Extension (S1) 4+ Good+ Abduction 4+ Good+ Adduction 5 Normal External Rotation 5 Normal Internal Rotation 5 Normal Left Flexion (L2) 4- Good- Extension (S1) 4+ Good+ Abduction 4+ Good+ Adduction 5 Normal External Rotation 5 Normal Internal Rotation 5 Normal Knee Strength Knee Manual Muscle Testing Right Flexion (S2) 5 Normal Extension (L3) 5 Normal Left Flexion (S2) 5 Normal Extension (L3) 5 Normal Ankle/Foot Strength Ankle and Foot Manual Muscle Testing Right Dorsiflexion (L4) 5 Normal Plantarflexion (S1) 5 Normal Inversion 5 Normal Eversion (S1) 5 Normal Left Dorsiflexion (L4) 5 Normal Plantarflexion (S1) 5 Normal Inversion 5 Normal Eversion (S1) 5 Normal Comments 20 heel raises B PT-OP-Q Treatments Start: 07/23/24 17:26 Freq: Status: Active Protocol: Document 09/02/24 12:20 GG (Rec: 09/02/24 12:32 GG [id number]) Therapeutic Exercises Supine Exercises penguin crunch' Reps/Minutes 5x Comments cue for chin tuck lower trunk rotation Reps/Minutes 10x Comments cue to return from rotation segmentally deadbug Reps/Minutes 10x bridge Supine Exercise Name SL Reps/Minutes 10x Comments cue to lift back up segmentally core Supine Exercise Name hip flex isometric Side bilateral Reps/Minutes 30 sec Prone Exercises plank Prone Exercise Name on elbows Reps/Minutes 15 sec Sitting Exercises V sit-back Reps/Minutes 10x Standing Exercises kettlebell swing Resistance 5# dumbbell Reps/Minutes 10x Other Exercises iraqi get up Resistance 5# dumbbell Reps/Minutes 1x PT-OP-T Assessment and Plan Start: 07/23/24 17:26 Freq: Status: Active Protocol: Document 09/02/24 12:20 GG (Rec: 09/02/24 12:32 GG [id number]) Physical Therapy Assessment Goals strength Short Term Goal (STG Pt will be indep w/HEP ) 08/20-minor cues needed STG Duration 09/06 Group Home Goal (LTG) Pt will score at least 4+/5 on all BLE MMT and at least 3/5 LPM to show improved stability to allow pt to be strong enough to do rec activities like skiing along w/ dec pain 08/20-improving LTG Duration 10/06 pain Short Term Goal (STG pt will report highest pain level at 6/10 in last week. ) STG Duration 09/06 Group Home Goal (LTG) pt will rate pain as no greater than 3/10 for at least 2 weeks LTG Duration 10/06 Assessment Summary Assessment Focused on adding core exercises to her HEP to improve strength and support back during movements, pt tolerated well and demonstrates good understanding of core control and form. Physical Therapy Plan Frequency and Duration Frequency of 1-2x/wk Treatment Duration of 10 treatment (weeks) Plan of Care Start 07/27/24 Date Plan of Care End 10/07/24 Date Therapeutic Interventions Therapeutic Balance Training,Gait Training,Home Exercise Program, Interventions Joint Mobilizations,Manual Therapy,Neuromuscular Re- education,Patient/Caregiver Education,Self-Care/Home Management,Soft Tissue Mobilization,Taping,Therapeutic Activities,Therapeutic Exercises Modalities Cold Pack/Ice Massage,Hot Packs Next Visit Focus/Plan Next Note Type Treatment Note Next Visit Plan Gentle manual to LEs, review strength exercises/ possibly progress as marisela. f/u about new core exercises
--- NOTE | 2024-09-17 12:16 | PT.OPDS ---
Current Diagnoses Pain in right leg (09/02/24) Pain in left leg (09/02/24) Cramp and spasm (09/02/24) Other symptoms and signs involving the musculoskeletal system (09/02/24) Visit Care Team Role Provider Type Leila Stewart MD Attending Provider Physician Family Provider Primary Care Provider Referring Provider Specialty: Family Practice GAS TRANSFER OPERATOR Address: [address] [place] [address], [id number] Email: [email or web address] Visit Number Visit Number 6 Discharge Summary PT-OP-B Current Condition Start: 07/23/24 17:26 Freq: Status: Active Protocol: Document 07/27/24 13:51 [facility] (Rec: 07/27/24 14:37 [facility] [id number]) Current Condition History of Current Condition Onset Date 1-1.5 years ago Current Complaints BLE pain History of Current for about a year to year and a half has been having Condition pain in legs and cramping. She was taking statins and stopped taking one then went on another and it got worse and stopped but not better. Pain ranges from 2-8/ 10. A day that it was bad, she got into a hot tub and that helped. Her entire life had ramona horses. She did become iron deficit and anemic. It is worse at night and wakes with it. Can't stand for long periods of time anymore. Can walk and feels like her LEs and strong. Bought a cane for a big day seeing cardio in [place] because it was a 7 mile day and having 3 points of contact can help. Does have varicose veins. Pain L> R ant thigh and wallace. She was just diagnosis w/MGUS. She is worried she has bone lesions. Awaiting bone marrow biopsy and CT body scan at [facility] for myeloma specialist. 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 Tried to ski and was too exhausted and couldn't do it. Worried about complications from MGUS causing these symptoms including a neuropathy from this. Was walking 4.3 miles a day last year and this year down to 4 per her apple watch. Prior to that was walking a little more. Denies back or neck pain. Does have some L glute pain and L lat knee/wallace. Sleeps w/CPAP on side and on back some. Treatment Goals Patient/Caregiver Get pain gone, figure out what is wrong, be able to ski Goals next winter PT-OP-C Subjective Start: 07/23/24 17:26 Freq: Status: Active Protocol: Document 09/02/24 12:20 GG (Rec: 09/02/24 12:32 GG [id number]) OP-PT Subjective Patient Comments Patient Comments Pt reports that her legs are feeling better. Got imaging report for her back and would to work on core more because she thinks that will help. PT-OP-D Balance Start: 07/23/24 17:26 Freq: Status: Active Protocol: Document 07/27/24 13:51 [facility] (Rec: 07/27/24 14:37 [facility] [id number]) Balance Tests Single Limb Standing Single Limb- Right >30 sec Single Limb- Left >30 sec w/some deviation PT-OP-J Posture/Palpation/Skin Start: 07/23/24 17:26 Freq: Status: Active Protocol: Document 08/20/24 13:20 [facility] (Rec: 08/20/24 18:27 [facility] [id number]) Posture Evaluation [facility] Postural Classification System Lumbar Protective 2 Mechanism Left AP Lumbar Protective 2 Mechanism Right AP Lumbar Protective 3 Mechanism Left PA Lumbar Protective 3 Mechanism Right PA PT-OP-L Special Tests Start: 07/23/24 17:26 Freq: Status: Active Protocol: Document 07/27/24 13:51 [facility] (Rec: 07/27/24 14:37 [facility] [id number]) Special Tests Other Special Tests Special Tests SLR: WNL ROM Slump and ext sit neg -mild more tightness L Azael: mild quad tightness quad reflex: 2+ B achilles reflex:1+ B PT-OP-M Strength Start: 07/23/24 17:26 Freq: Status: Active Protocol: Document 08/20/24 13:20 [facility] (Rec: 08/20/24 18:27 [facility] [id number]) Hip Strength Hip Manual Muscle Testing Right Flexion (L2) 3+ Fair+ Extension (S1) 4+ Good+ Abduction 4+ Good+ Adduction 5 Normal External Rotation 5 Normal Internal Rotation 5 Normal Left Flexion (L2) 4- Good- Extension (S1) 4+ Good+ Abduction 4+ Good+ Adduction 5 Normal External Rotation 5 Normal Internal Rotation 5 Normal Knee Strength Knee Manual Muscle Testing Right Flexion (S2) 5 Normal Extension (L3) 5 Normal Left Flexion (S2) 5 Normal Extension (L3) 5 Normal Ankle/Foot Strength Ankle and Foot Manual Muscle Testing Right Dorsiflexion (L4) 5 Normal Plantarflexion (S1) 5 Normal Inversion 5 Normal Eversion (S1) 5 Normal Left Dorsiflexion (L4) 5 Normal Plantarflexion (S1) 5 Normal Inversion 5 Normal Eversion (S1) 5 Normal Comments 20 heel raises B PT-OP-T Assessment and Plan Start: 07/23/24 17:26 Freq: Status: Active Protocol: Document 09/17/24 12:14 [facility] (Rec: 09/17/24 12:16 [facility] [id number]) Physical Therapy Assessment Goals strength Short Term Goal (STG Pt will be indep w/HEP ) 08/20-minor cues needed STG Duration 09/06 Nursing Home Goal (LTG) Pt will score at least 4+/5 on all BLE MMT and at least 3/5 LPM to show improved stability to allow pt to be strong enough to do rec activities like skiing along w/ dec pain 08/20-improving LTG Duration 10/06 pain Short Term Goal (STG pt will report highest pain level at 6/10 in last week. ) STG Duration 09/06 Nursing Home Goal (LTG) pt will rate pain as no greater than 3/10 for at least 2 weeks LTG Duration 10/06 Assessment Summary Assessment pt called to cancelled last scheduled appointment and when asked if wanted to reschedule noted she did not. Attempted to call pt 2x but did not go to voicemail and pt has opted out of text messages. DC d/t pt request Physical Therapy Plan Discharge Physical Therapy Discharge Reasons Patient Request
== END 2024-09-18 10:47 | disposition home or self-care (01) ==
LOC: PHYS 11:30
PROVIDERS: Family Provider Family Medicine; PCP Family Medicine; Referring Provider Family Medicine; Visit Provider Family Medicine
DX: R25.2 Cramp and spasm (principal); M79.604 Pain in right leg; M79.605 Pain in left leg; R29.898 Other symptoms and signs involving the musculoskeletal system
CPT/HCPCS: 97110; 97112; 97140; 97162; 97530

== ENCOUNTER → 2024-10-23 12:29 | Outpatient (CLI) | payer OTHER, SELFPAY ==
[2024-10-23 17:56] LABS: Vitamin D 25 Hydroxy (D3) 102 ng/mL (30.0-100.0)
== END ==
PROVIDERS: Family Provider Family Medicine; PCP Family Medicine; Referring Provider Family Medicine; Visit Provider Family Medicine
DX: Z86.39 Personal history of other endocrine, nutritional and metabolic disease (principal)
CPT/HCPCS: 36415; 82306

== ENCOUNTER → 2025-02-17 12:48 | Outpatient (CLI) | payer OTHER, SELFPAY ==
--- NOTE | 2025-02-17 12:49 | DI.MG.S_ITS ---
MM screening mammo BI: 02/17/2025. BI-RADS: 1 CLINICAL: 64-year old female for bilateral screening mammogram. Tyrer-Cuzick lifetime risk of 4.7%. No personal or first-degree family history of breast cancer. PRIOR EXAMS 12/31/2023, 09/06/2021, 02/15/2020. MAMMOGRAPHY TECHNIQUE: 2D and 3D (tomosynthesis) digital mammographic views obtained, with additional images as needed for full coverage. Current study was also evaluated with a Computer Aided Detection (CAD) system. DENSITY B. There are scattered areas of fibroglandular density. MAMMOGRAPHY FINDINGS Left: An implanted nuclear medical tech obscures a portion of the breast/axilla. Bilateral: No suspicious mass, asymmetry, microcalcification, or other abnormality seen. IMPRESSION: * No evidence of malignancy. RECOMMENDATIONS Bilateral * Annual screening mammography. OVERALL ASSESSMENT CATEGORY BI-RADS-1: Negative. The [employer] recommends annual screening mammography beginning at age 40 for women with average risk of breast cancer. ELECTRONICALLY SIGNED: Jeannine Bagley M.D. on 02/17/2025 at 03:29:50 PM PT Interpreting Station ID: [id number]
== END ==
LOC: MAMMO 12:48
PROVIDERS: Family Provider Family Medicine; PCP Family Medicine; Referring Provider Family Medicine; Visit Provider Family Medicine
DX: Z12.31 Encounter for screening mammogram for malignant neoplasm of breast (principal)
CPT/HCPCS: 77063; 77067